=== PATIENT | male | born 1980 | race Caucasian/White ===

== ENCOUNTER 2020-03-08 19:22 | Emergency (ER) | payer MEDICAID, OTHER ==
[~2020-03-08] VITALS: Ht 193 cm; Wt 133.8 kg
[2020-03-08 19:38] VITALS: BP 136/109
[2020-03-08] MEDS ORDERED: HYDROcodone/APAP 5 MG/325 MG (LORTAB) TAB PO ONE (19:45)
[2020-03-08] MEDS ORDERED: LIDOCAINE 1% INJ 20 ML 20 ML VIAL INJ ONE (19:45)
--- NOTE | 2020-03-08 20:09 | ED Integumentary General ---
General Chief Complaint: General Problems/Pain Stated Complaint: WELT ON NECK Nursing Triage Note: Pt to RM 7 with c/o knot on left side of neck that is causing pain down neck. Source: patient Exam Limitations: no limitations History of Present Illness Date Seen by Provider: Mar 08, 2020 Time Seen by Provider: 19:35 Initial Comments 39-year-old male who presents to the emergency room with complaints of painful red knot on the left side of his neck. He reports that he noticed this a few days ago and is concerned that he got bit by a spider. He denies fevers. Possible Cause: insect bite Associated Symptoms: swelling/mass/lumps Allergies and Home Medications Allergies Coded Allergies: No Known Drug Allergies (Unverified , 03/08/20) Patient Home Medication List Home Medication List Reviewed: Yes Review of Systems Review of Systems Constitutional: see HPI; No chills, No fever Skin: see HPI, other (lump on left side of neck) All Other Systems Reviewed Negative Unless Noted: Yes Past Pxzorrs-Tfyzff-Uiueqj Hx Past Med/Social Hx: Reviewed Nursing Past Med/Soc Hx Patient Social History Recent Foreign Travel: No Contact w/Someone Who Travel: No Recent Infectious Disease Expo: No Recent Hopitalizations: No Seasonal Allergies Seasonal Allergies: No Past Medical History Surgeries: Yes Tonsillectomy Respiratory: Yes Pulmonary Embolism Cardiac: No Neurological: No Genitourinary: No Gastrointestinal: No Musculoskeletal: No Endocrine: Yes Diabetes, Non-Insulin dep HEENT: No Cancer: No Psychosocial: No Integumentary: No Blood Disorders: No Family Medical History Reviewed Nursing Family Hx Physical Exam Vital Signs Vital Signs - First Documented 03/08/20 19:38 Temp 37.1 Pulse 85 Resp 19 B/P (MAP) 136/109 (118) Pulse Ox 98 O2 Delivery Room Air Capillary Refill : Less Than 3 Seconds General Appearance: WD/WN, no apparent distress Respiratory: chest non-tender, lungs clear, normal breath sounds, no respiratory distress, no accessory muscle use Gastrointestinal: normal bowel sounds, non tender, soft, no organomegaly, no pulsatile mass Neurologic/Psychiatric: alert, normal mood/affect, oriented x 3 Skin Problem Location: neck Skin Problem Character: abscess (2 cm in diameter indurated reddened raised area on the left side of neck with mild amount of fluctuation. No redness or streaking noted from the central punctum area.) Procedures/Interventions I&D : Blade Size: 11 I & D Procedure: betadine prep Progress The wound was cleaned with Betasept prior to anesthetization. The wound was anesthetized size with lidocaine 1% without epinephrine approximately 1 mL. A small incision was made with an 11 blade scalpel. Moderate amount of purulent drainage was expressed. Forceps were inserted and loculations were broken up. Cavity was irrigated with lidocaine. Patient tolerated procedure well. Sterile dressing was applied. Progress/Results/Core Measures Results/Orders My Orders Orders - ARBEN BOUDREAUX Hydrocodone/Apap 5/325 Tablet (Lortab 5 (03/08/20 19:45) Lidocaine 1% Inj 20 Ml (Xylocaine 1% Inj (03/08/20 19:45) Wound Culture (03/08/20 19:41) Sulfamethoxazole/Trimet Ds Tab (Bactrim (03/08/20 20:15) Medications Given in ED Current Medications Medications Dose Ordered Sig/Mary Route Start Time Stop Time Status Last Admin Dose Admin Acetaminophen/ Hydrocodone Bitart 1 tab ONCE ONCE PO 03/08/20 19:45 03/08/20 19:46 DC 03/08/20 19:46 1 TAB Lidocaine HCl 20 ml ONCE ONCE INJ 03/08/20 19:45 03/08/20 19:46 DC 03/08/20 19:46 20 ML Vital Signs/I&O 03/08/20 19:38 Temp 37.1 Pulse 85 Resp 19 B/P (MAP) 136/109 (118) Pulse Ox 98 O2 Delivery Room Air Blood Pressure Mean: 118 Departure Impression Primary Impression: Neck abscess Disposition: 01 HOME, SELF-CARE Condition: Stable/Unchanged Departure-Patient Inst. Decision time for Depature: 20:14 Referrals: NO,LOCAL PHYSICIAN (PCP/Family) Primary Care Physician Patient Instructions: Abscess Incision and Drainage (DC) Add. Discharge Instructions: Take medications as directed. Change dressing daily. Follow-up with your primary care provider within 1 week for recheck. Call tomorrow to schedule an appointment time. Return back to the emergency room for worsening symptoms, fevers, or any other concerns as needed. All discharge instructions reviewed with patient and/or family. Voiced understanding. Scripts Sulfamethoxazole/Trimethoprim (Bactrim Ds Tablet) 1 Each Tablet 1 EACH PO BID for 10 Days, #20 TAB Prov: ARBEN BOUDREAUX 03/08/20 ARBEN BOUDREAUX Mar 08, 2020 20:09
[2020-03-08] MEDS ORDERED: TRIM/SULFAMETH 160/800 (SEPTRA DS) TAB PO ONE (20:15)
[2020-03-08] MEDS ORDERED: SULF1TAB35 PO (20:16)
--- OUTSIDE RECORDS SUMMARY | 2020-03-08 22:52 | XMS REPORT | Continuity of Care Document ---
[facility] Address [address] [place] [address] Care Team Providers Care Floor Space Allocator Name Role Phone Odessa Hopson PCP Unavailable Ana Green Unavailable Allergies, Adverse Reactions, Alerts No known allergies. Medications Active Medications Medication Dose Units Route Sig Qty Start Date Status In structions Insulin Glargine [Lantus Solostar U-100 Insulin] 13 UNIT S ubcutaneous daily January 06, 2019 Active Apixaban [Eliquis] 5 MG Oral Twice a Day July 07, 2018 Active Hydrocodone-Acetaminophen 1 TAB Oral Q6H er 2017 Active Insulin Syringe-Needle U-100 [Bd Insulin Syringe Ultra-Fine] 0 Route .MEDSUPPLY 100 November 10, 2018 Active Use for Novolog Injections Blood Sugar Diagnostic [True Metrix Glucose Test Strip] 0 Route .MEDSUPPLY 100 November 12, 2018 Active Check bs twice daily and as needed Rosuvastatin 10 MG Oral daily November 24, 2018 Activ e Metformin 1000 MG Oral Twice a Day 120 December 02, 2018 Act [place]on Insulin Regular Human [Novolin R Regular U-100 Insuln] 1 sliding scale dose Subcutaneous Use as Directed December 10, 2018 Active He takes s liding scale: 150-200 3 units; 201-250 6 units, 251-30 0 9 units; 301-350 12 units Discontinued Medications Medication Dose Units Route Sig Qty Start Date Discontinued Yinka e Status Instructions Rosuvastatin 10 MG Oral daily July 04, 2018 October 172018 Discontinued Metformin 1000 MG Oral Twice a Day July 04, 2018 October 28, 2018 Discontinued Insulin Regular Human UNIT Subcutaneous Novem 2017November 07, 2018 Discontinued Hydrocodone-Acetaminophen 1 TAB Oral Q6H 15 b er 2017July 07, 2018 Discontinued Insulin Degludec [Tresiba Flextouch U-100] 10 UNIT Subcuta neous daily 15 July 14, 2018JuneJuly 16, 2018 Discontinued Inject 10 units ever y day for 1 week, then increase by 3-5 units until FBS is 120-150 Insulin Glargine [Lantus Solostar U-100 Insulin] 10 UNIT S ubcutaneous daily 15 July 16, 2018 January 06, 2019 Discontinued Pen Needle, Diabetic [Comfort Ez Pen [place]] 0 Rout e .MEDSUPPLY 100 July 16, 2018 November 07, 2018 Discontinued Use daily with lantu s solostar pen Rosuvastatin 10 MG Oral daily 30 October 28, 2018 November 24, 2 019 Discontinued Metformin 1000 MG Oral Twice a Day 60 October 28, 2018Nov Discontinued Insulin Lispro [Humalog U-100 Insulin] 1 sliding scale d ose Subcutaneous Use as Directed 3 November 07, 2018 November 10, 2018 Discontinued He takes sl iding scale: 150-200 3 units; 201-250 6 units, 251-30 0 9 units; 301-350 12 units Blood Sugar Diagnostic [Onetouch Verio] 0 Route .MEDSUPP LY 100 November 07, 2018 November 12, 2018 Discontinued Use to check blood sugars tw ice daily and as needed Insulin Syringe-Needle U-100 [Bd Insulin Syringe Ultra-Fine] 0 Route .MEDSUPPLY 100 November 07, 2018 November 10, 2018 Discontinued Use for Hum alog Injections Insulin Regular Human [Novolin R Regular U-100 Insuln] 1 sliding scale dose Subcutaneous Use as Directed November 10, 2018 November 10, 2018 Discontinu ed Insulin Regular Human [Novolin R Regular U-100 Insuln] 1 sliding scale dose Subcutaneous Use as Directed November 10, 2018 December 10, 2018 Discontinu ed He takes sliding scale: 150-200 3 units; 201-250 6 units, 251-30 0 9 units; 301-350 12 units Enoxaparin [Lovenox] 130 MG Subcutaneous Every 12 Hours 4 February 01, 2018 July 07, 2018 Discontinued Prednisone 0 Route .COMPLEX 17 June 18, 2018 Nov ember 2017 Discontinued 3 tabs daily x 2 days, 2 tabs daily x 3 days, 1 tab daily x 3 days, 1/2 tab daily x 3 days, then stop Problem List Active Problems Medical Problem Onset Date Status Urticaria Active DVT (deep venous thrombosis) Active Diabetes type 2, uncontrolled Active Procedures Procedure Date Status US echocardiogram ultrasound January 09, 2019 active XR chest 2V January 06, 2019 completed Reason for Referral Reason for Referral Date Referral was Provided Provider Office Contact Location January 07, 2019 [facility] Relevant Diagnostic Tests and/or Laboratory Data Laboratory Results Test Date/Time Result Interp. Ref. Range Result Comment White Blood Count January 06, 2019 3:10pm 12.0 10^3/uL High 4.5-11. 0 Red Blood Count January 06, 2019 3:10pm 5.60 10^6/uL 4.70-6.00 Hemoglobin January 06, 2019 3:10pm 17.6 g/dL High 13.5-17.5 Hematocrit January 06, 2019 3:10pm 50.7 % 41-53 Mean Corpuscular Volume January 06, 2019 3:10pm 90.5 fL 79- 99 Mean Corpuscular Hemoglobin January 06, 2019 3:10pm 31.5 pg 25.0-34.0 Mean Corpuscular Hemoglobin Concent January 06, 2019 3:10pm 34.8 g/dL 31.0-36.0 Red Cell Distribution Width January 06, 2019 3:10pm 13.0 % 11.0-15.0 Platelet Count January 06, 2019 3:10pm 271 10^3 uL 130-400 Mean Platelet Volume January 06, 2019 3:10pm 8.5 fL 7.0-11 .0 Neutrophils % (Manual) January 06, 2019 3:10pm 61.0 % 50-6 5 Band Neutrophils % (Manual) January 06, 2019 3:10pm 1.0 % 0-10 Lymphocytes % (Manual) January 06, 2019 3:10pm 36.0 % 15-4 5 Eosinophils % (Manual) January 06, 2019 3:10pm 2.0 % 0-5 Neutrophils # (Manual) January 06, 2019 3:10pm 7.4 # 1.0- 8.0 Lymphocytes # (Manual) January 06, 2019 3:10pm 4.3 # High 1.0- 3.0 Eosinophils # (Manual) January 06, 2019 3:10pm 0.2 # 0.0- 0.4 Chief Complaint and Reason for Visit Encounter Admit Date Chief Complaint Reason for Visit Departed Clinical January 09, 2019 8:07am Sinus tachycardia|Pr e-operative cardiovascular exa Hospital Discharge Instructions No known hospital discharge instructions. Hospital Discharge Medications Medication Dose Units Route Sig Qty Days Order Date Status In structions Insulin Glargine 13 UNIT Subcutaneous daily January 06, 2019 Active Rosuvastatin 10 MG Oral daily July 04, 2018 Discontinued Metformin 1000 MG Oral Twice a Day July 04 8 Discontinued Insulin Regular Human UNIT Subcutaneous Nov 2017 Discontinued Apixaban 5 MG Oral Twice a Day July 07, 2018 Active Hydrocodone-Acetaminophen 1 TAB Oral Q6H 2017 Discontinued Hydrocodone-Acetaminophen 1 TAB Oral Q6H 2017 Active Insulin Degludec 10 UNIT Subcutaneous daily July 14, 2018 Discontinued Inject 10 units every day for 1 week, then increase by 3-5 units until FBS is 120-150 Insulin Glargine 10 UNIT Subcutaneous daily July 16, 2018 Discontinued Pen Needle, Diabetic 0 Route .MEDSUPPLY 100 Novemb er 2017 Discontinued Use daily with lantus solostar pen Rosuvastatin 10 MG Oral daily October 28, 2018 Dis continued Metformin 1000 MG Oral Twice a Day 60 October 28, 2018 D iscontinued Insulin Lispro 1 sliding scale dose Subcutaneous Use as Directed 3 November 07, 2018 Discontinued He takes sliding scale: 150-200 3 units; 201-250 6 units, 251-30 0 9 units; 301-350 12 units Blood Sugar Diagnostic 0 Route .MEDSUPPLY 100 [place] h 2018 Discontinued Use to check blood sugars twice daily and as needed Insulin Syringe-Needle U-100 0 Route .MEDSUPPLY 100 November 07, 2018 Discontinued Use for Humalog Injections Insulin Regular Human 1 sliding scale dose Subcutaneous Use as Dir ected November 10, 2018 Discontinued Insulin Regular Human 1 sliding scale dose Subcutaneous Use as Dir ected November 10, 2018 Discontinued He takes sliding scale: 150-200 3 units; 201-250 6 units, 251-30 0 9 units; 301-350 12 units Insulin Syringe-Needle U-100 0 Route .MEDSUPPLY 100 November 10, 2018 Active Use for Novolog Injections Blood Sugar Diagnostic 0 Route .MEDSUPPLY 100 [place] h 2018 Active Check bs twice daily and as needed Rosuvastatin 10 MG Oral daily November 24, 2018 Acti ve Metformin 1000 MG Oral Twice a Day 120 December 02, 2018 A ctive Insulin Regular Human 1 sliding scale dose Subcutaneous Use as Dir ected December 10, 2018 Active He takes sliding scale: 150-200 3 units; 201-250 6 units, 251-30 0 9 units; 301-350 12 units Enoxaparin 130 MG Subcutaneous Every 12 Hours 4 January 172017 Discontinued Prednisone 0 Route .COMPLEX 17 June 18, 2018 D iscontinued 3 tabs daily x 2 days, 2 tabs daily x 3 days, 1 tab daily x 3 days, 1/2 tab daily x 3 days, then stop Encounters Encounter Facility Location Admit/Visit Date Discharge/Departure Date Attending Provider Departed [facility] Radiology January 09, 2019 8:07am January 09, 2019 8:08am Ana Green Departed Physician/Provider Office Visit [facility] Partner s [facility] Family Medicine January 07, 2019 10:17am January 07, 2019 11:59pm Ana Green Departed [facility] for Patients in [facility] January 06, 2019 3:09pm January 06, 2019 3:10pm Ana Green Departed Physician/Provider Office Visit [facility] Medical Partner [facility] Medicine January 06, 2019 1:56pm January 06, 2019 3:20pm Ana Green Functional Status No known functional status. Immunizations No known immunizations. Payers Payer Name Policy Type Covered Green Party Covered Green Party Id Relationship Sub scriber Subscriber Id [employer] Medicaid Christopher Linker [id number] Self / Same As Patient Christopher Linker [id number] [facility] Medicaid Christopher Linker [id number] Self / Same As Patient Christopher Linker [id number] Self Pay Plan of Care No Known Plan of Care Information Social History Query Response Date Recorded Comment current occupational status unemployed January 06, 2019 5:09pm service No January 06, 2019 5:09pm second hand exposure Yes January 06, 2019 5:09pm substance use type does not use January 06, 2019 5:09pm Query Response Start Date Stop Date Smoking Status Current every day smoker Vital Signs Vital Reading Result Reference Range Collection Date/ Time Height 6 ft 4 in January 06, 2019 2:0 1pm Weight 300 lb January 06, 2019 2:0 1pm Temperature 96.2 F 97.5 F-99.5 F January 06, 2019 2:0 1pm Pulse 80 BPM 60-90 January 06, 2019 2:0 1pm Respiration 20 RPM 12-20 January 06, 2019 2:0 1pm Pulse Oximetry 98 % 90-100 January 06, 2019 2:0 1pm Blood Pressure Systolic 118 100-160 January 06, 2019 2:01pm Blood Pressure Diastolic 90 50-80 January 06, 2019 2:01pm Body Mass Index 36.5 January 06, 2019 2:0 1pm"
--- OUTSIDE RECORDS SUMMARY | 2020-03-08 22:52 | XMS REPORT | Continuity of Care Document ---
[facility] Address [address] [place] [address] Care Team Providers Care Financial Report Service Sales Agent Name Role Phone Odessa Hopson PCP Unavailable PeterAna pappas Attphys Unavailable PeterAna pappas Rndphys Unavailable Allergies, Adverse Reactions, Alerts No known [...] as needed Rosuvastatin 10 MG Oral daily 30 November 24, 2018 Activ e Metformin 1000 [...] Discontinued Hydrocodone-Acetaminophen 1 TAB Oral Q6H 15 er 2017July 07, 2018 Discontinued Insulin Degludec [Tresiba Flextouch U-100] 10 UNIT Subcuta neous daily July 14, 2018 July 16, 2018 Discontinued Inject 10 units ever y day for 1 week, then increase by 3-5 units until FBS is 120-150 Insulin Glargine [Lantus Solostar U-100 Insulin] 10 UNIT S ubcutaneous daily 15 July 16, 2018 January 06, 2019 Discontinued Pen Needle, Diabetic [Comfort Ez Pen [place]] 0 Rout e .MEDSUPPLY 100 July 16, 2018 November 07, 2018 Discontinued Use daily with lantu s solostar pen Rosuvastatin 10 MG Oral daily 30 October 28, 2018 November 24, 2 019 Discontinued Metformin 1000 MG Oral Twice a Day 60 October 28, 2018Nov Discontinued Insulin Lispro [Humalog U-100 Insulin] 1 sliding scale d ose Subcutaneous Use as Directed November 07, 2018 November 10, 2018 Discontinued [...] Route .COMPLEX 17 June 18, 2018 Nov emb2017 Discontinued 3 tabs daily x 2 days, 2 tabs daily x 3 days, 1 tab daily x 3 days, 1/2 tab daily x 3 days, then stop Problem List Active Problems Medical Problem Onset Date Status Urticaria Active DVT (deep venous thrombosis) Active Diabetes type 2, uncontrolled Active Procedures Procedure Date Status XR chest 2V January 06, 2019 completed [...] Date Chief Complaint Reason for Visit Departed Physician/Provider Office Visit January 07, 2019 10:17am re peat EKG, [facility] Discharge Instructions No known hospital discharge [...] Needle, Diabetic 0 Route .MEDSUPPLY 100 Novemb 2017 Discontinued Use daily with lantus solostar pen Rosuvastatin 10 MG Oral daily October 28, 2018 Dis continued Metformin 1000 MG Oral Twice a Day 60 October 28, 2018 D iscontinued Insulin Lispro 1 sliding scale dose Subcutaneous Use as Directed November 07, 2018 Discontinued He takes sliding [...] January 172017 Discontinued Prednisone 0 Route .COMPLEX June 18, 2018 D iscontinued 3 tabs daily x 2 days, 2 tabs daily x 3 days, 1 tab daily x 3 days, 1/2 tab daily x 3 days, then stop Encounters Encounter Facility Location Admit/Visit Date Discharge/Departure Date Attending Provider Departed Physician/Provider Office Visit [facility] s [facility] Family Medicine January 07, 2019 10:17am January 07, 2019 11:59pm Ana Green Departed Clinical [facility] for Patients in [facility] January 06, 2019 3:09pm January 06, 2019 3:10pm Ana Green Departed Physician/Provider Office Visit [facility] Medical Partner s [facility] Medicine January 06, 2019 1:56pm January 06, 2019 3:20pm Ana Green Functional Status No known functional status. Immunizations No known immunizations. Payers Payer Name Policy Type Covered Green Party Covered Green Party Id Relationship Sub scriber Subscriber Id [employer] Medicaid Christopher Linker [id number] Self / Same As Patient Christopher Linker [id number] [facility] Medicaid Christopher Linker [id number] Self / Same As Patient Christopher Linker [id number] Self Pay Plan of Care No Known [...] 06, 2019 2:0 1pm Respiration 20 RPM 12-January 06, 2019 2:0 1pm Pulse Oximetry 98 % 90-100 January 06, 2019 2:0 1pm Blood Pressure Systolic 118 100-160 January 06, 2019 2:01pm Blood Pressure Diastolic 90 50-80 January 06, 2019 2:01pm Body Mass Index 36.5 January 06, 2019 2:0 1pm
--- OUTSIDE RECORDS SUMMARY | 2020-03-08 22:52 | XMS REPORT | Clinical Summary ---
Author Author Vahid Holliday Organization [facility] Address Unknown Phone Unavailable Allergies, Adverse Reactions, Alerts Allergy Name Reaction Description Start Date Severity Status Pr ovider No Known Allergies Shiloh Lewis LPN Conditions or Problems Problem Name Problem Code Onset Date Status Entry Date Provider Comment Standard Description Annotate Type 2 diabetes mellitus with hyperglycemia 250.00 Act ramon Maliheh Ziglari MELTER CASTER Diabetes mellitus without me ntion of complication, type II or unspecified type, not stated as uncontrolled Medication List Medication Instructions Start Date Stop Date Generic Name NDC Status Provider Patient Instruction ONETOUCH VERIO INVITR STRP Check blood sugars 3x/day GLUCOSE BLOOD 20186622276 Active Maliheh Ziglari MELTER CASTER Active ONETOUCH DELICA LANCETS 33G MISC 3 a day LANCET S 84729594385 Active Maliheh Ziglari MELTER CASTER Active METFORMIN HCL 500 MG [id number] one a day for 5 days th en 2 a day for 5 days, add one every 5 days to 4 daily METFORMIN HCL 19672243338 Acti ve Maliheh Ziglari MELTER CASTER Active NOVOLOG 100 UNIT/ML SC SOLN 150-3u 199-6u sliding scale with m eals INSULIN ASPART 22859504006 Active Maliheh Ziglari MELTER CASTER Active COUMADIN 2.5 MG ORAL TABS takes with 10mg tablets every other day 2 WARFARIN SODIUM 23239558689 Active Maliheh Ziglari MELTER CASTER Acti ve COUMADIN 10 MG ORAL TABS takes 15mg - alterating with 12.5 EOD 2016 WARFARIN SODIUM 40418430209 Active Maliheh Ziglari MELTER CASTER Acti ve Vital Signs Date Name Value Unit Range Description blood pressure, diastolic - 8462-4 80 mm[Hg] BP real blood pressure, systolic - 8480-6 128 mm[Hg] BP sys height E&M - 8302-2 76 [in_us] Bdy h eight pulse rate E&M - 8867-4 84 /min H eart rate weight E&M - 3141-9 350 [lb_av] Weigh t Measured Diagnostic Results Date Name Value Unit Range Description Lab Report: Basic Metabolic Panel, HGBA1 C - Chemistry sodium, serum 138 mmol/L 808-765 2806/06/01 potassium, serum 4.4 mmol/L 3.5-5.2 chloride, serum 103 mmol/L 98-107 carbon dioxide, venous blood 26.8 mmol/L 21.0-32 .0 blood glucose 241 mg/dL 65-110 calcium, serum 8.5 mg/dL 8.5-10.1 urea nitrogen, blood 11 mg/dL 7-18 creatinine, serum Err code 14 mg/dl mg/dL 0.55-1.30 hemoglobin A1C, blood, as % of total hemoglobin 7.2 % 4.3-6.0 Office Visit: Diabetes Visit - Basic LDL target level 100 mg/dL Office Visit: Diabetes Visit - Chemistry home glucose monitor utilized Yes cholesterol, target level 200 mg/dL triglyceride, target level 200 mg/dL HDL cholesterol, serum, target level 35 mg/dL Encounters Code Encounter Date Provider Facility CPT-11040 Level 5 Est. Patient 12:50:37 CDT Derek jackson [facility]
--- OUTSIDE RECORDS SUMMARY | 2020-03-08 22:52 | XMS REPORT | Clinical Summary ---
Author Author Vahid Holliday Organization [facility] Address Unknown Phone Unavailable Allergies, Adverse Reactions, Alerts Allergy Name Reaction Description Start Date Severity Status Pr ovider No Known Allergies Shlioh Lewis LPN Conditions or Problems Problem Name Problem Code Onset Date Status Entry Date Provider Comment Standard Description Annotate Type 2 diabetes mellitus with hyperglycemia 250.00 Act ramon Maliheh Ziglari [employer]OP[employer] PLAYER Diabetes mellitus without me ntion of complication, type II or unspecified type, not stated as uncontrolled Medication List Medication Instructions Start Date Stop Date Generic Name NDC Status Provider Patient Instruction ONETOUCH VERIO INVITR STRP Check blood sugars 3x/day GLUCOSE BLOOD 85412304544 Active Maliheh Ziglari SAXOPHONE PLAYER Active ONETOUCH DELICA LANCETS 33G MISC 3 a day LANCET S 98248776759 Active Maliheh Ziglari SAXOPHONE PLAYER Active METFORMIN HCL 500 MG [id number] one a day for 5 days th en 2 a day for 5 days, add one every 5 days to 4 daily METFORMIN HCL 11670229827 Acti ve Maliheh Ziglari SAXOPHONE PLAYER Active NOVOLOG 100 UNIT/ML SC SOLN 150-3u 199-6u sliding scale with m eals INSULIN ASPART 67508292714 Active Maliheh Ziglari SAXOPHONE PLAYER Active COUMADIN 2.5 MG ORAL TABS takes with 10mg tablets every other day 2 WARFARIN SODIUM 53388485342 Active Maliheh Ziglari SAXOPHONE PLAYER Acti ve COUMADIN 10 MG ORAL TABS takes 15mg - alterating with 12.5 EOD 2016 WARFARIN SODIUM 99576011144 Active Maliheh Ziglari SAXOPHONE PLAYER Acti ve Vital Signs Date Name Value [...] C - Chemistry sodium, serum 138 mmol/L 105-245 3191/06/01 potassium, serum 4.4 mmol/L 3.5-5.2 chloride, serum [...] mg/dL Encounters Code Encounter Date Provider Facility CPT-55773 Level 5 Est. Patient 12:50:37 CDT Derek jackson [facility]
--- OUTSIDE RECORDS SUMMARY | 2020-03-08 22:52 | XMS REPORT | Clinical Summary ---
Author Author Admin, Vahid Gomes Organization [facility] Address Unknown Phone Unavailable Allergies, Adverse Reactions, Alerts Allergy Name Reaction Description Start Date Severity Status Pr ovider No Known Allergies Shiloh Lewis LPN Conditions or Problems Problem Name Problem Code Onset Date Status Entry Date Provider Comment Standard Description Annotate Type 2 diabetes mellitus with hyperglycemia 250.00 Act ramon Maliheh Ziglari MANAGER OF RECRUITING Diabetes mellitus without me ntion of complication, type II or unspecified type, not stated as uncontrolled Medication List Medication Instructions Start Date Stop Date Generic Name NDC Status Provider Patient Instruction ONETOUCH VERIO INVITR STRP Check blood sugars 3x/day GLUCOSE BLOOD 91598852300 Active Maliheh Ziglari MANAGER OF RECRUITING Active ONETOUCH DELICA LANCETS 33G MISC 3 a day LANCET S 82458721008 Active Maliheh Ziglari MANAGER OF RECRUITING Active METFORMIN HCL 500 MG [id number] one a day for 5 days th en 2 a day for 5 days, add one every 5 days to 4 daily METFORMIN HCL 10798946527 Acti ve Maliheh Ziglari MANAGER OF RECRUITING Active NOVOLOG 100 UNIT/ML SC SOLN 150-3u 199-6u sliding scale with m eals INSULIN ASPART 88528976940 Active Maliheh Ziglari MANAGER OF RECRUITING Active COUMADIN 2.5 MG ORAL TABS takes with 10mg tablets every other day 2 WARFARIN SODIUM 66895626324 Active Maliheh Ziglari MANAGER OF RECRUITING Acti ve COUMADIN 10 MG ORAL TABS takes 15mg - alterating with 12.5 EOD 2016 WARFARIN SODIUM 30710255709 Active Maliheh Ziglari MANAGER OF RECRUITING Acti ve Vital Signs Date Name Value [...] C - Chemistry sodium, serum 138 mmol/L 333-420 7588/06/01 potassium, serum 4.4 mmol/L 3.5-5.2 chloride, serum [...] mg/dL Encounters Code Encounter Date Provider Facility CPT-67575 Level 5 Est. Patient 12:50:37 CDT Derek jackson [facility]
--- OUTSIDE RECORDS SUMMARY | 2020-03-08 22:52 | XMS REPORT ---
Author Author Vahid WILLOUGHBY Organization [facility] Address [address] [place] [address] Care Team Providers Care Power Generation Plant Operator Name Role Phone NIKOLAY WILLOUGHBY Unavailable PROBLEMS Unknown Problems ALLERGIES No Known Allergies SOCIAL HISTORY Never Assessed PLAN OF CARE Activity Details Follow Up SRP/CARLA need INR and medical clearance Reason: VITAL SIGNS Blood pressure systolic 115 mmHg 2016-10-16 Blood pressure diastolic 77 mmHg 2016-10-16 MEDICATIONS Medication Instructions Dosage Frequency Start Date End Date Duration S tatus Insulin Aspart Active Warfarin Sodium Active RESULTS No Results PROCEDURES Procedure Date Ordered Result Body Site LTD ORAL EVALUATION - PROBLEM FOCUS Oct 16, 2016 INTRAORL-PERIAPICAL 1 FILM [id number] Oct 16, 2016 INTRAORL-PERIAPICAL EA ADD FILM Oct 16, 2016 INTRAORL-PERIAPICAL EA ADD FILM Oct 16, 2016 PANORAMIC FILM SEE ALSO CODE [id number] Oct 16, 2016 BITEWINGS - FOUR FILMS Oct 16, 2016 IMMUNIZATIONS No Known Immunizations MEDICAL (GENERAL) HISTORY Type Description Date Medical History diabetes type II Medical History heoatutus C inactive Medical History blood thinners Medical History pulmonary embolism Surgical History tonsillectomy Hospitalization History see surgical Hx Hospitalization History pulmonary embolism 2009 Hospitalization History diabetes 04/2016
--- OUTSIDE RECORDS SUMMARY | 2020-03-08 22:52 | XMS REPORT | Clinical Summary ---
Author Author Vahid Holliday Organization [facility] Address Unknown Phone Unavailable Allergies, Adverse Reactions, Alerts Allergy Name Reaction Description Start Date Severity Status Pr ovider No Known Allergies Shiloh Lewis LPN Conditions or Problems Problem Name Problem Code Onset Date Status Entry Date Provider Comment Standard Description Annotate Type 2 diabetes mellitus with hyperglycemia 250.00 Act ramon Maliheh Ziglari FLOUR MIXER Diabetes mellitus without me ntion of complication, type II or unspecified type, not stated as uncontrolled Medication List Medication Instructions Start Date Stop Date Generic Name NDC Status Provider Patient Instruction ONETOUCH VERIO INVITR STRP Check blood sugars 3x/day GLUCOSE BLOOD [id number] Active Maliheh Ziglari FLOUR MIXER Active ONETOUCH DELICA LANCETS 33G MISC 3 a day LANCET S 00315855024 Active Maliheh Ziglari FLOUR MIXER Active METFORMIN HCL 500 MG [id number] one a day for 5 days th en 2 a day for 5 days, add one every 5 days to 4 daily METFORMIN HCL 50687431100 Acti ve Maliheh Ziglari FLOUR MIXER Active NOVOLOG 100 UNIT/ML SC SOLN 150-3u 199-6u sliding scale with m eals INSULIN ASPART 83295512648 Active Maliheh Ziglari FLOUR MIXER Active COUMADIN 2.5 MG ORAL TABS takes with 10mg tablets every other day 2 WARFARIN SODIUM 13670960254 Active Maliheh Ziglari FLOUR MIXER Acti ve COUMADIN 10 MG ORAL TABS takes 15mg - alterating with 12.5 EOD 2016 WARFARIN SODIUM 67156474127 Active Maliheh Ziglari FLOUR MIXER Acti ve Vital Signs Date Name Value [...] Results Date Name Value Unit Range Description Office Visit: Diabetes Visit - Basic LDL target level 100 mg/dL Office Visit: Diabetes Visit - Chemistry home glucose monitor utilized Yes cholesterol, target level 200 mg/dL triglyceride, target level 200 mg/dL HDL cholesterol, serum, target level 35 mg/dL Encounters Code Encounter Date Provider Facility CPT-22061 Level 5 Est. Patient 12:50:37 CDT Derek jackson [facility]
--- OUTSIDE RECORDS SUMMARY | 2020-03-08 22:52 | XMS REPORT | Continuity of Care Document ---
[facility] Address [address] [place] [address] Care Team Providers Care Revenue Inspector Name Role Phone Odessa Hopson PCP Unavailable [...] Discontinued Pen Needle, Diabetic [Comfort Ez Pen [place]] 0 Rout e .MEDSUPPLY 100 July 16, [...] XR chest 2V January 06, 2019 completed Relevant Diagnostic Tests and/or Laboratory Data Laboratory [...] 06, 2019 3:10pm 0.2 # 0.0- 0.4 Hospital Discharge Instructions No known hospital discharge instructions. Hospital Discharge Medications Medication Dose Units Route Sig Qty Days Order Date Status In structions Insulin Glargine 13 UNIT Subcutaneous daily January 06, 2019 Active Rosuvastatin 10 MG Oral daily July 04, 2018 Discontinued Metformin 1000 MG Oral Twice a Day July 04 8 Discontinued Insulin Regular Human UNIT Subcutaneous Jun Discontinued Apixaban 5 MG Oral Twice a Day July 07, 2018 Active Hydrocodone-Acetaminophen 1 TAB Oral Q6H 15 2017 Discontinued Hydrocodone-Acetaminophen 1 TAB Oral Q6H [...] Blood Sugar Diagnostic 0 Route .MEDSUPPLY 100 [place] h 2018 Active Check bs twice daily [...] Location Admit/Visit Date Discharge/Departure Date Attending Provider Registered Physician/Provider Office Visit [facility] Medical Partn ers [facility] Family Medicine January 07, 2019 10:17am Ana Green Departed Clinical [facility] for Patients in [facility] January 06, 2019 3:09pm January 06, 2019 3:10pm Ana Green Departed Physician/Provider Office Visit [facility] Medical Partner s [facility] Family Medicine January 06, 2019 1:56pm January 06, 2019 3:20pm Ana Green Functional Status No known functional status. Immunizations No known immunizations. Payers Payer Name Policy Type Covered Constitution Party Covered Constitution Party Id Relationship Sub scriber Subscriber Id [facility] Medicaid Christopher Linker [id number] Self / Same As Patient Christopher Linker [id number] [facility] Medicaid Christopher Linker [id number] Self / Same As Patient Christopher Linker [id number] Self Pay Plan of Care No Known [...]
--- OUTSIDE RECORDS SUMMARY | 2020-03-08 22:52 | XMS REPORT | Continuity of Care Document ---
[facility] Address [address] [place] [address] Care Team Providers Care Associate Professor Of Management Name Role Phone Odessa Hopson PCP Unavailable [...] U-100 Insulin] 10 UNIT S ubcutaneous daily July 16, 2018 January 06, 2019 Discontinued Pen Needle, Diabetic [Comfort Ez Pen [place]] 0 Rout e .MEDSUPPLY 100 July 16, [...] Route .COMPLEX 17 June 18, 2018 Nov 2017 Discontinued 3 tabs daily x 2 days, 2 tabs daily x 3 days, 1 tab daily x 3 days, 1/2 tab daily x 3 days, then stop Problem List Active Problems Medical Problem Onset Date Status Urticaria Active DVT (deep venous thrombosis) Active Diabetes type 2, uncontrolled Active Procedures No known history of procedures. Reason for Referral Referral information is unavailable. Relevant Diagnostic Tests and/or Laboratory Data No known relevant diagnostic tests, laboratory data, and/or discharge summary. Chief Complaint and Reason for Visit Encounter Admit Date Chief Complaint Reason for Visit Departed Physician/Provider Office Visit January 06, 2019 1:56pm surgery on 01/20 preop clearance and labs Hospital Discharge Instructions No known hospital discharge [...] MG Oral daily 30 October 28, 2018 Dis continued Metformin 1000 MG Oral Twice a Day 60 October 28, 2018 D iscontinued Insulin Lispro 1 sliding scale dose Subcutaneous Use as Directed 3 November 07, 2018 Discontinued He takes sliding scale: 150-200 3 units; 201-250 6 units, 251-30 0 9 units; 301-350 12 units Blood Sugar Diagnostic 0 Route .MEDSUPPLY 100 [place] 2018 Discontinued Use to check blood sugars [...] Enoxaparin 130 MG Subcutaneous Every 12 Hours January 172017 Discontinued Prednisone 0 Route .COMPLEX June 18, 2018 D iscontinued 3 tabs daily x 2 days, 2 tabs daily x 3 days, 1 tab daily x 3 days, 1/2 tab daily x 3 days, then stop Encounters Encounter Facility Location Admit/Visit Date Discharge/Departure Date Attending Provider Registered Clinical [facility] for Patients in [facility] January 06, 2019 3:09pm Ana Green Departed Physician/Provider Office Visit [facility] Medical Partner s [facility] Family Medicine January 06, 2019 1:56pm January 06, 2019 3:20pm Ana Green Functional Status No known functional status. Immunizations No known immunizations. Payers Payer Name Policy Type Covered Alliance Party Covered Alliance Party Id Relationship Sub scriber Subscriber Id [employer] Medicaid Christoph Linker [id number] Self / Same As Patient Christopher Linker [id number] [facility] Medicaid Christopher Linker [id number] Self / Same As Patient Christopher Linker [id number] Self Pay Plan of Care No Known Plan of Care Information Social History Query Response Date Recorded Comment current occupational status unemployed January 06, 2019 2:46pm service No January 06, 2019 2:46pm second hand exposure Yes January 06, 2019 2:46pm substance use type does not use January 06, 2019 2:46pm Query Response Start Date Stop Date Smoking [...]
--- OUTSIDE RECORDS SUMMARY | 2020-03-08 22:52 | XMS REPORT | Clinical Summary ---
Author Author Vahid Holliday Organization [facility] Address Unknown Phone Unavailable Allergies, Adverse Reactions, Alerts Allergy Name Reaction Description Start Date Severity Status Pr ovider No Known Allergies Shiloh Lewis LPN Conditions or Problems Problem Name Problem Code Onset Date Status Entry Date Provider Comment Standard Description Annotate Type 2 diabetes mellitus with hyperglycemia 250.00 Act ramon Maliheh Ziglari WAFER ABRADING MACHINE TENDER Diabetes mellitus without me ntion of complication, type II or unspecified type, not stated as uncontrolled Medication List Medication Instructions Start Date Stop Date Generic Name NDC Status Provider Patient Instruction ONETOUCH VERIO INVITR STRP Check blood sugars 3x/day GLUCOSE BLOOD 24467215482 Active Maliheh Ziglari WAFER ABRADING MACHINE TENDER Active ONETOUCH DELICA LANCETS 33G MISC 3 a day LANCET S 29013779269 Active Maliheh Ziglari WAFER ABRADING MACHINE TENDER Active METFORMIN HCL 500 MG [id number] one a day for 5 days th en 2 a day for 5 days, add one every 5 days to 4 daily METFORMIN HCL 40415177613 Acti ve Maliheh Ziglari WAFER ABRADING MACHINE TENDER Active NOVOLOG 100 UNIT/ML SC SOLN 150-3u 199-6u sliding scale with m eals INSULIN ASPART 33796202831 Active Maliheh Ziglari WAFER ABRADING MACHINE TENDER Active COUMADIN 2.5 MG ORAL TABS takes with 10mg tablets every other day 2 WARFARIN SODIUM 77263438939 Active Maliheh Ziglari WAFER ABRADING MACHINE TENDER Acti ve COUMADIN 10 MG ORAL TABS takes 15mg - alterating with 12.5 EOD 2016 WARFARIN SODIUM 76530079621 Active Maliheh Ziglari WAFER ABRADING MACHINE TENDER Acti ve Vital Signs Date Name Value [...] C - Chemistry sodium, serum 138 mmol/L 700-450 3740/06/01 potassium, serum 4.4 mmol/L 3.5-5.2 chloride, serum [...] mg/dL Encounters Code Encounter Date Provider Facility CPT-89068 Level 5 Est. Patient 12:50:37 CDT Derek jackson [facility]
--- OUTSIDE RECORDS SUMMARY | 2020-03-08 22:52 | XMS REPORT | Continuity of Care Document ---
Author Author [facility] Organization [facility] Address [address] [place] [address] Care Team Providers Care Tow Boat Captain Name Role Phone Odessa Hopson PCP Unavailable [...] Discontinued Pen Needle, Diabetic [Comfort Ez Pen [place]] 0 Rout e .MEDSUPPLY 100 July 16, [...] Admit/Visit Date Discharge/Departure Date Attending Provider Departed Clinical [facility] Lab for Patients in Cli [facility] January 06, 2019 3:09pm January 06, 2019 3:10pm Ana Green Departed Physician/Provider Office Visit [facility] Family Medicine January 06, 2019 1:56pm January 06, 2019 3:20pm Ana Green Functional Status No known functional status. Immunizations No known immunizations. Payers Payer Name Policy Type Covered Alliance Party Covered Alliance Party Id Relationship Sub scriber Subscriber Id [employer] Medicaid Christopher Linker [id number] Self / Same As Patient Christopher Linker [id number] [facility] Medicaid Christopher Linker [id number] Self / Same As Patient Christopher Linker [id number] Self Pay Plan of Care No Known [...]
--- OUTSIDE RECORDS SUMMARY | 2020-03-08 22:52 | XMS REPORT | Clinical Summary ---
Author Author Admin, Vahid Gomes Organization [facility] Address Unknown Phone Unavailable Allergies, Adverse Reactions, Alerts Allergy Name Reaction Description Start Date Severity Status Pr ovider No Known Allergies Shiloh Lewis LPN Conditions or Problems Problem Name Problem Code Onset Date Status Entry Date Provider Comment Standard Description Annotate Type 2 diabetes mellitus with hyperglycemia 250.00 Act ramon Maliheh Ziglari SOCIAL SERVICE WORKER Diabetes mellitus without me ntion of complication, type II or unspecified type, not stated as uncontrolled Medication List Medication Instructions Start Date Stop Date Generic Name NDC Status Provider Patient Instruction ONETOUCH VERIO INVITR STRP Check blood sugars 3x/day GLUCOSE BLOOD 07639371717 Active Maliheh Ziglari SOCIAL SERVICE WORKER Active ONETOUCH DELICA LANCETS 33G MISC 3 a day LANCET S 38664786654 Active Maliheh Ziglari SOCIAL SERVICE WORKER Active METFORMIN HCL 500 MG [id number] one a day for 5 days th en 2 a day for 5 days, add one every 5 days to 4 daily METFORMIN HCL 37443883656 Acti ve Maliheh Ziglari SOCIAL SERVICE WORKER Active NOVOLOG 100 UNIT/ML SC SOLN 150-3u 199-6u sliding scale with m eals INSULIN ASPART 23267547987 Active Maliheh Ziglari SOCIAL SERVICE WORKER Active COUMADIN 2.5 MG ORAL TABS takes with 10mg tablets every other day 2 WARFARIN SODIUM 81622580121 Active Maliheh Ziglari SOCIAL SERVICE WORKER Acti ve COUMADIN 10 MG ORAL TABS takes 15mg - alterating with 12.5 EOD 2016 WARFARIN SODIUM 32050150616 Active Maliheh Ziglari SOCIAL SERVICE WORKER Acti ve Vital Signs Date Name Value [...] mg/dL Encounters Code Encounter Date Provider Facility CPT-93296 Level 5 Est. Patient 12:50:37 CDT Derek ENGLISH [facility]
--- OUTSIDE RECORDS SUMMARY | 2020-03-08 22:52 | XMS REPORT | Clinical Summary ---
Author Author Vahid Holliday Organization [facility] Address Unknown Phone Unavailable Allergies, Adverse Reactions, Alerts Allergy Name Reaction Description Start Date Severity Status Pr ovider No Known Allergies Shiloh Lewis LPN Conditions or Problems Problem Name Problem Code Onset Date Status Entry Date Provider Comment Standard Description Annotate Type 2 diabetes mellitus with hyperglycemia 250.00 Act ramon Maliheh Ziglari GROUP UNDERWRITER Diabetes mellitus without me ntion of complication, type II or unspecified type, not stated as uncontrolled Medication List Medication Instructions Start Date Stop Date Generic Name NDC Status Provider Patient Instruction ONETOUCH VERIO INVITR STRP Check blood sugars 3x/day GLUCOSE BLOOD 23392372614 Active Maliheh Ziglari GROUP UNDERWRITER Active ONETOUCH DELICA LANCETS 33G MISC 3 a day LANCET S 35126671215 Active Maliheh Ziglari GROUP UNDERWRITER Active METFORMIN HCL 500 MG [id number] one a day for 5 days th en 2 a day for 5 days, add one every 5 days to 4 daily METFORMIN HCL 10159548647 Acti ve Maliheh Ziglari GROUP UNDERWRITER Active NOVOLOG 100 UNIT/ML SC SOLN 150-3u 199-6u sliding scale with m eals INSULIN ASPART 69726500287 Active Maliheh Ziglari GROUP UNDERWRITER Active COUMADIN 2.5 MG ORAL TABS takes with 10mg tablets every other day 2 WARFARIN SODIUM 74734264543 Active Maliheh Ziglari GROUP UNDERWRITER Acti ve COUMADIN 10 MG ORAL TABS takes 15mg - alterating with 12.5 EOD 2016 WARFARIN SODIUM 88800209534 Active Maliheh Ziglari GROUP UNDERWRITER Acti ve Vital Signs Date Name Value [...] mg/dL Encounters Code Encounter Date Provider Facility CPT-63055 Level 5 Est. Patient 12:50:37 CDT Derek jackson [facility]
--- OUTSIDE RECORDS SUMMARY | 2020-03-08 22:52 | XMS REPORT | Clinical Summary ---
Author Author Admin, Vahid Gomes Organization [facility] Address Unknown Phone Unavailable Allergies, Adverse Reactions, Alerts Allergy Name Reaction Description Start Date Severity Status Pr ovider No Known Allergies Shiloh Lewis LPN Conditions or Problems Problem Name Problem Code Onset Date Status Entry Date Provider Comment Standard Description Annotate Type 2 diabetes mellitus with hyperglycemia 250.00 Act ramon Maliheh Ziglari MICROARRAY SPECIALIST Diabetes mellitus without me ntion of complication, type II or unspecified type, not stated as uncontrolled Medication List Medication Instructions Start Date Stop Date Generic Name NDC Status Provider Patient Instruction ONETOUCH VERIO INVITR STRP Check blood sugars 3x/day GLUCOSE BLOOD 91209359685 Active Maliheh Ziglari MICROARRAY SPECIALIST Active ONETOUCH DELICA LANCETS 33G MISC 3 a day LANCET S 73949713968 Active Maliheh Ziglari MICROARRAY SPECIALIST Active METFORMIN HCL 500 MG [id number] one a day for 5 days th en 2 a day for 5 days, add one every 5 days to 4 daily METFORMIN HCL 93616573608 Acti ve Maliheh Ziglari MICROARRAY SPECIALIST Active NOVOLOG 100 UNIT/ML SC SOLN 150-3u 199-6u sliding scale with m eals INSULIN ASPART 18797244199 Active Maliheh Ziglari MICROARRAY SPECIALIST Active COUMADIN 2.5 MG ORAL TABS takes with 10mg tablets every other day 2 WARFARIN SODIUM 23261145508 Active Maliheh Ziglari MICROARRAY SPECIALIST Acti ve COUMADIN 10 MG ORAL TABS takes 15mg - alterating with 12.5 EOD 2016 WARFARIN SODIUM 11196870366 Active Maliheh Ziglari MICROARRAY SPECIALIST Acti ve Vital Signs Date Name Value [...] C - Chemistry sodium, serum 138 mmol/L 950-407 7906/06/01 potassium, serum 4.4 mmol/L 3.5-5.2 chloride, serum [...] mg/dL Encounters Code Encounter Date Provider Facility CPT-41086 Level 5 Est. Patient 12:50:37 CDT Derek jackson [facility]
--- OUTSIDE RECORDS SUMMARY | 2020-03-08 22:53 | XMS REPORT | Continuity of Care Document ---
[facility] Address [address] [place] [address] Care Team Providers Care Optical Advisor Name Role Phone Odessa Hopson PCP Unavailable Odessa Hopson Attphys Unavailable Allergies, Adverse Reactions, Alerts No known allergies. Medications Active Medications Medication Dose Units Route Sig Qty Start Date Status In structions Rosuvastatin 10 MG Oral daily July 04, 2018 A ctive Metformin 1000 MG Oral Twice a Day July 04, 2018 Active Insulin Regular Human UNIT Subcutaneous 2017 Active Apixaban [Eliquis] 5 MG Oral Twice a Day July 07, 2018 Active Hydrocodone-Acetaminophen 1 TAB Oral Q6H er 2017 Active Insulin Glargine [Lantus Solostar U-100 Insulin] 10 UNIT S ubcutaneous daily July 16, 2018 Active Pen Needle, Diabetic [Comfort Ez Pen [place]] 0 Rout e .MEDSUPPLY 100 July 16, 2018 Active Use daily with lantus solost ar pen Discontinued Medications Medication Dose Units Route Sig Qty Start Date Discontinued Yinka e Status Instructions Hydrocodone-Acetaminophen 1 TAB Oral Q6H er 2017July 07, 2018 Discontinued Insulin Degludec [Tresiba Flextouch U-100] 10 UNIT Subcuta neous daily July 14, 2018 July 16, 2018 Discontinued Inject 10 units ever y day for 1 week, then increase by 3-5 units until FBS is 120-150 Enoxaparin [Lovenox] 130 MG Subcutaneous Every 12 [...] Urticaria Active DVT (deep venous thrombosis) Active Procedures No known history of procedures. Relevant Diagnostic Tests and/or Laboratory Data Laboratory Results Test Date/Time Result Interp. Ref. Range Result Comment White Blood Count October 21, 2018 10:38am 12.8 10^3/uL High 4.5-1 1.0 Red Blood Count October 21, 2018 10:38am 5.82 10^6/uL 4.70-6. 00 Hemoglobin October 21, 2018 10:38am 18.3 g/dL High 13.5-17.5 Hematocrit October 21, 2018 10:38am 53.2 % High 41-53 Mean Corpuscular Volume October 21, 2018 10:38am 91.4 fL 7 9-99 Mean Corpuscular Hemoglobin October 21, 2018 10:38am 31.5 pg 25.0-34.0 Mean Corpuscular Hemoglobin Concent October 21, 2018 10:38am 34.5 g/dL 31.0-36.0 Red Cell Distribution Width October 21, 2018 10:38am 13.1 % 11.0-15.0 Platelet Count October 21, 2018 10:38am 243 10^3 uL 130-400 Mean Platelet Volume October 21, 2018 10:38am 9.7 fL 7.0- 11.0 Neutrophils % (Manual) October 21, 2018 10:38am 52.0 % 50 -65 Band Neutrophils % (Manual) October 21, 2018 10:38am 1.0 % 0-10 Lymphocytes % (Manual) October 21, 2018 10:38am 33.0 % 15 -45 Monocytes % (Manual) October 21, 2018 10:38am 8.0 % 0-10 Eosinophils % (Manual) October 21, 2018 10:38am 6.0 % High 0- 5 Neutrophils # (Manual) October 21, 2018 10:38am 6.8 # 1. 0-8.0 Lymphocytes # (Manual) October 21, 2018 10:38am 4.2 # High 1. 0-3.0 Monocytes # (Manual) October 21, 2018 10:38am 1.0 # 0.0- 1.0 Eosinophils # (Manual) October 21, 2018 10:38am 0.8 # High 0. 0-0.4 Sodium Level October 21, 2018 10:38am 139 mmol/L 135-150 Potassium Level October 21, 2018 10:38am 4.6 mmol/L 3.4-5.2 Chloride Level October 21, 2018 10:38am 103 mmol/L 100-112 Carbon Dioxide Level October 21, 2018 10:38am 25 mEq/L 18-3 0 Anion Gap October 21, 2018 10:38am 11 mmol/L 8-11 Blood Urea Nitrogen October 21, 2018 10:38am 13 mg/dL 5-21 Creatinine October 21, 2018 10:38am 1.04 mg/dL 0.60-1.30 Glomerular Filtration Rate Calc October 21, 2018 10:38am > 60 mL/Min > 60 The GFR is not validated for use in drug dosing adjustments. Continue to use estimated creatinine clearance per dosing reference text. Chronic Kidney Disease is defined as either kidney damage or a GFR less than 60 ml/min that persists for at least 3 months. Stage 3 = 30-59 ml/min Stage 4 = 15-29 ml/min Stage 5 = <15 ml/min Glucose Level October 21, 2018 10:38am 316 mg/dL High 70-99 Hemoglobin A1c October 21, 2018 10:38am 11.4 % High <6.4 Hemoglobin A1C levels are related to mean blood glucose during the preceding 2 - 3 months. The relationship table below may be used as a general guide. HGB A1C APPROX. MEAN GLUCOSE 5% 97 mg/dL 6% 126 mg/dL 7% 154 mg/dL 8% 183 mg/dL 9% 212 mg/dL 10% 240 mg/dL 11% 269 mg/dL 12% 298 mg/dL Each 1% increase in HGB A1C is a reflection of an increase in mean glucose of approximately 30 mg/dl. Calcium Level October 21, 2018 10:38am 10.3 mg/dL 8.6-10.5 Total Bilirubin October 21, 2018 10:38am 0.3 mg/dL 0.0-1.2 Aspartate Amino Transf (AST/SGOT) October 21, 2018 10:38am 13 U/L 6-37 Alanine Aminotransferase (ALT/SGPT) October 21, 2018 10:38am 24 U/L 12-78 Total Protein October 21, 2018 10:38am 7.8 g/dL 6.4-8.2 Albumin October 21, 2018 10:38am 4.2 g/dL 3.3-4.5 Albumin/Globulin Ratio October 21, 2018 10:38am 1.2 0. 7-2.0 Triglycerides Level October 21, 2018 10:38am 458 mg/dL High <149 LDL Cholesterol Direct October 21, 2018 10:38am 102 mg/dL High <9 9 Alkaline Phosphatase October 21, 2018 10:38am 93 U/L 50-1 36 Hospital Discharge Instructions No known hospital discharge instructions. Hospital Discharge Medications Medication Dose Units Route Sig Qty Days Order Date Status In structions Rosuvastatin 10 MG Oral daily July 04, 2018 Active Metformin 1000 MG Oral Twice a Day July 04 8 Active Insulin Regular Human UNIT Subcutaneous Nov 2017 Active Apixaban 5 MG Oral Twice a Day July 07, 2018 Active Hydrocodone-Acetaminophen 1 TAB Oral Q6H 2017 Discontinued Hydrocodone-Acetaminophen 1 TAB Oral Q6H 2017 Active Insulin Degludec 10 UNIT Subcutaneous daily July 14, 2018 Discontinued Inject 10 units every day for 1 week, then increase by 3-5 units until FBS is 120-150 Insulin Glargine 10 UNIT Subcutaneous daily July 16, 2018 Active Pen Needle, Diabetic 0 Route .MEDSUPPLY 100 2017 Active Use daily with lantus solostar pen Enoxaparin 130 MG Subcutaneous Every 12 Hours 4 January 172017 Discontinued Prednisone 0 Route .COMPLEX June 18, 2018 D iscontinued 3 tabs daily x 2 days, 2 tabs daily x 3 days, 1 tab daily x 3 days, 1/2 tab daily x 3 days, then stop Encounters Encounter Facility Location Admit/Visit Date Discharge/Departure Date Attending Provider Departed Clinical [facility] October 21, 2018 10:37am October 21, 2018 10:38am Odessa Hopson Departed Physician/Provider Office Visit [facility] Medical Partner [facility] Family Medicine October 21, 2018 9:58am October 21, 2018 10:39am Odessa Hopson Functional Status No known functional status. Immunizations No known immunizations. Payers Payer Name Policy Type Covered Green Party Covered Green Party Id Relationship Sub scriber Subscriber Id [employer] Medicaid Christoph Linker [id number] Self / Same As Patient Christopher Linker [id number] [facility] Medicaid Christopher Linker [id number] Self / Same As Patient Christopher Linker [id number] Self Pay Plan of Care No Known Plan of Care Information Social History No known social history. Vital Signs No known vital signs results.
--- OUTSIDE RECORDS SUMMARY | 2020-03-08 22:53 | XMS REPORT | Continuity of Care Document ---
[facility] Address [address] [place] [place] [address] Care Team Providers Care Shake Packer Name Role Phone Odessa Hopson PCP Odessa Hopson Attphys Allergies, Adverse Reactions, Alerts No known allergies. Medications Active Medications Medication Dose Units Route Sig Qty Start Date Status Enoxaparin [Lovenox] 130 MG Subcutaneous Every 12 Hours 4 February 01, 2018 Active Problem List Active Problems Medical Problem Onset Date Status DVT (deep venous thrombosis) Active Procedures Procedure Date Status US venous doppler LE LT February 03, 2018 completed Relevant Diagnostic Tests and/or Laboratory Data No known relevant diagnostic tests, laboratory data, and/or discharge summary. Chief Complaint and Reason for Visit Encounter Admit Date Chief Complaint Reason for Visit Departed Clinical February 03, 2018 11:25am Acute embolism and thrombosis of unspecified deep Hospital Discharge Instructions No known hospital discharge instructions. Hospital Discharge Medications Medication Dose Units Route Sig Qty Days Order Date Status In structions Enoxaparin 130 MG Subcutaneous Every 12 Hours 4 January 172017 Active Encounters Encounter Facility Location Admit/Visit Date Discharge/Departure Date Attending Provider Departed Clinical [facility] February 03, 2018 11:25am February 03, 2018 11:26am Odessa Hopson Departed Emergency [facility] J 2017 10:53pm February 01, 2018 11:51pm Functional Status No known functional status. Immunizations No known immunizations. Payers Payer Name Policy Type Covered Libertarian Covered Libertarian Id Relationship Sub scriber Subscriber Id [facility] Medicaid FRANCESCO FARFAN [id number] Self / Same As Patient FRANCESCO FARFAN [id number] Self Pay Plan of Care No Known Plan of Care Information Social History Query Response Date Recorded Comment substance use type does not use February 01, 2018 11:31pm Query Response Start Date Stop Date Smoking Status Current every day smoker Vital Signs Vital Reading Result Reference Range Collection Date/ Time Height 6 ft 4 in February 01, 2018 11 :03pm Weight 280 lb February 01, 2018 11 :03pm Temperature 98.9 F 97.5 F-99.5 F February 01, 2018 11 :03pm Pulse 87 BPM 60-90 February 01, 2018 11 :03pm Respiration 18 RPM 12-20 February 01, 2018 11 :03pm Pulse Oximetry 95 % 90-100 February 01, 2018 11 :03pm Blood Pressure Systolic 145 100-160 February 01, 2018 11:03pm Blood Pressure Diastolic 88 50-80 January 11:03pm Body Mass Index 34.0 February 01, 2018 11 :03pm
--- OUTSIDE RECORDS SUMMARY | 2020-03-08 22:53 | XMS REPORT | Continuity of Care Document ---
[facility] Address [address] [place] [address] Care Team Providers Care Haulage Boss Name Role Phone Unavailable Unavailable Allergies, Adverse Reactions, Alerts No known allergies. Medications Active Medications Medication Dose Units Route Sig Qty Start Date Status In structions Rosuvastatin 10 MG Oral daily July 04, 2018 A ctive Metformin 1000 MG Oral Twice a Day July 04, 2018 Active Insulin Regular Human UNIT Subcutaneous Novem 2017 Active Apixaban [Eliquis] 5 MG Oral Twice a Day July 07, 2018 Active Hydrocodone-Acetaminophen 1 TAB Oral Q6H er 2017 Active Insulin Glargine [Lantus Solostar U-100 Insulin] 10 UNIT S ubcutaneous daily July 16, 2018 Active Pen Needle, Diabetic [Comfort Ez Pen [place]] 0 Rout e .MEDSUPPLY 100 July 16, [...] Reason for Visit Departed Physician/Provider Office Visit October 21, 2018 9:58am fa sting lab Hospital Discharge Instructions No known hospital discharge instructions. Hospital Discharge Medications Medication Dose Units Route Sig Qty Days Order Date Status In structions Rosuvastatin 10 MG Oral daily July 04, 2018 Active Metformin 1000 MG Oral Twice a Day July 04 8 Active Insulin Regular Human UNIT Subcutaneous Jun Active Apixaban 5 MG Oral Twice a [...] Date Discharge/Departure Date Attending Provider Registered Clinical [facility] October 21, 2018 10:37am Odessa Hopson Departed Physician/Provider Office Visit [facility] Medical Partner s [facility] Family Medicine October 21, 2018 9:58am October 21, 2018 10:39am Odessa Hopson Functional Status No known functional status. Immunizations No known immunizations. Payers Payer Name Policy Type Covered Green Party Covered Green Party Id Relationship Sub scriber Subscriber Id [employer] Medicaid Christopher Linker [id number] Self / Same As Patient Christopher Linker [id number] [employer] Medicaid Christopher Linker [id number] Self / Same As Patient Lesbushra Adolph [id number] Self Pay Plan of Care No Known Plan of Care Information Social History No known social history. Vital Signs No known vital signs results.
--- OUTSIDE RECORDS SUMMARY | 2020-03-08 22:53 | XMS REPORT | Continuity of Care Document ---
[facility] Address [address] [place] [address] Care Team Providers Care It Telecom Technician Name Role Phone Unavailable Unavailable Allergies, Adverse [...] Active Hydrocodone-Acetaminophen 1 TAB Oral Q6H 15 er 2017 Active Discontinued Medications Medication Dose Units Route Sig Qty Start Date Discontinued Yinka e Status Instructions Hydrocodone-Acetaminophen 1 TAB Oral Q6H 15 er 2017July 07, 2018 Discontinued Enoxaparin [Lovenox] 130 MG Subcutaneous Every 12 [...] unavailable. Relevant Diagnostic Tests and/or Laboratory Data Laboratory Results Test Date/Time Result Interp. Ref. Range Result Comment Lipoprotein Evaluation July 08, 2018 8:46am See Separate Report Chief Complaint and Reason for Visit Encounter Admit Date Chief Complaint Reason for Visit Departed Physician/Provider Office Visit July 08, 2018 8:27a m lab Hospital Discharge Instructions No known hospital [...] Hydrocodone-Acetaminophen 1 TAB Oral Q6H 2017 Active Enoxaparin 130 MG Subcutaneous Every 12 Hours January 172017 Discontinued Prednisone 0 Route .COMPLEX June 18, 2018 D iscontinued 3 tabs daily x 2 days, 2 tabs daily x 3 days, 1 tab daily x 3 days, 1/2 tab daily x 3 days, then stop Encounters Encounter Facility Location Admit/Visit Date Discharge/Departure Date Attending Provider Registered Clinical [facility] July 08, 2018 8:42am Odessa Hopson Departed Physician/Provider Office Visit [facility] Medical Partner [facility] Family Medicine July 08, 2018 8:27am July 08, 2018 8:49am Odessa Hopson Departed Physician/Provider Office Visit [facility] Medical [facility] Family Medicine July 07, 2018 1:32pm July 07, 2018 4:16pm Odessa Hopson Functional Status No known functional status. Immunizations No known immunizations. Payers Payer Name Policy Type Covered Libertarian Covered Libertarian Id Relationship Sub scriber Subscriber Id [facility] Medicaid Christopher Linker [id number] Self / Same As Patient Christopher Linker [id number] Self Pay Plan of Care No Known Plan of Care Information Social History Query Response Date Recorded Comment service No July 07, 2018 7:14pm second hand exposure Yes July 07, 2018 7:14pm substance use type does not use July 07, 2018 7:14pm Query Response Start Date Stop Date Smoking Status Current every day smoker Vital Signs Vital Reading Result Reference Range Collection Date/ Time Height 6 ft 4 in July 07 2:05pm Weight 322 lb July 07 2:05pm Temperature 97.3 F 97.5 F-99.5 F July 07 2:05pm Pulse 113 BPM 60-90 July 07 2:05pm Respiration 16 RPM -July 07 2:05pm Pulse Oximetry 98 % 90-100 July 07 2:05pm Blood Pressure Systolic 110 100-160 July 07, 2018 2:05pm Blood Pressure Diastolic 74 50-80 [facility] 2017 2:05pm Body Mass Index 39.2 July 07 2:05pm
--- OUTSIDE RECORDS SUMMARY | 2020-03-08 22:53 | XMS REPORT | Continuity of Care Document ---
[facility] Address [address] [place] [address] Care Team Providers Care Tacker Elastic Band Name Role Phone Unavailable Unavailable Allergies, Adverse [...] for Visit Departed Physician/Provider Office Visit July 07, 2018 1:32p m Physical Exam Hospital Discharge Instructions No known hospital discharge instructions. Hospital Discharge Medications Medication Dose Units Route Sig Qty Days Order Date Status In structions Rosuvastatin 10 MG Oral daily July 04, 2018 Active Metformin 1000 MG Oral Twice a Day July 04 Active Insulin Regular Human UNIT Subcutaneous Jun [...] Date Attending Provider Departed Physician/Provider Office Visit [facility] Medical Partner s [facility] Family Medicine July 07, 2018 1:32pm July 07, 2018 4:16pm Odessa Hopson Functional Status No known functional status. Immunizations No known immunizations. Payers Payer Name Policy Type Covered Constitution Party Covered Constitution Party Id Relationship Sub scriber Subscriber Id [employer] Medicaid Christopher Linker [id number] Self / Same As Patient Christopher Linker [id number] Self Pay Plan of Care No Known Plan of Care Information Social History Query Response Date Recorded Comment service No July 07, 2018 2:37pm second hand exposure Yes July 07, 2018 2:37pm substance use type does not use July 07, 2018 2:37pm Query Response Start Date Stop Date Smoking Status Current every day smoker Vital Signs Vital Reading Result Reference Range Collection Date/ Time Height 6 ft 4 in July 07 8 2:05pm Weight 322 lb July 07 8 2:05pm Temperature 97.3 F 97.5 F-99.5 F July 07 8 2:05pm Pulse 113 BPM 60-90 July 07 8 2:05pm Respiration 16 RPM 12-20 July 07 8 2:05pm Pulse Oximetry 98 % 90-100 July 07 8 2:05pm Blood Pressure Systolic 110 100-160 July 07, 2018 2:05pm Blood Pressure Diastolic 74 50-80 [facility] 2:[facility] Body Mass Index 39.2 July 07 8 2:05pm
--- OUTSIDE RECORDS SUMMARY | 2020-03-08 22:53 | XMS REPORT | Continuity of Care Document ---
[facility] Address [address] [place] [address] Care Team Providers Care Grass Farmer Name Role Phone Unavailable Unavailable Allergies, Adverse Reactions, Alerts No known allergies. Medications Active Medications Medication Dose Units Route Sig Qty Start Date Status In structions Insulin Regular Human UNIT Subcutaneous Novem 2017 Active Apixaban [Eliquis] 5 MG Oral Twice a Day July 07, 2018 Active Hydrocodone-Acetaminophen 1 TAB Oral Q6H 15 er 2017 Active Insulin Glargine [Lantus Solostar U-100 Insulin] 10 UNIT S ubcutaneous daily 15 July 16, 2018 Active Pen Needle, Diabetic [Comfort Ez Pen [place]] 0 Rout e .MEDSUPPLY 100 July 16, 2018 Active Use daily with lantus solost ar pen Rosuvastatin 10 MG Oral daily 30 October 28, 2018 Acti ve Metformin 1000 MG Oral Twice a Day 60 October 28, 2018 Act [place] Discontinued Medications Medication Dose Units Route Sig Qty Start Date Discontinued Yinka e Status Instructions Rosuvastatin 10 MG Oral daily July 04, 2018 October 172018 Discontinued Metformin 1000 MG Oral Twice a Day July 04, 2018 October 28, 2018 Discontinued Hydrocodone-Acetaminophen 1 TAB Oral Q6H [...] Reason for Visit Departed Physician/Provider Office Visit November 06, 2018 10:5 0am Est/Medication management Hospital Discharge Instructions No known hospital discharge instructions. Hospital Discharge Medications Medication Dose Units Route Sig Qty Days Order Date Status In structions Rosuvastatin 10 MG Oral daily July 04, 2018 Discontinued Metformin 1000 MG Oral Twice a Day July 04 8 Discontinued Insulin Regular Human UNIT Subcutaneous Jun Active [...] Pen Needle, Diabetic 0 Route .MEDSUPPLY 100 Novem2017 Active Use daily with lantus solostar pen Rosuvastatin 10 MG Oral daily 30 October 28, 2018 Act [place] Metformin 1000 MG Oral Twice a Day 60 October 28, 2018 A ctive Enoxaparin 130 MG Subcutaneous Every 12 Hours 4 January 172017 Discontinued Prednisone 0 Route .COMPLEX 17 June 18, 2018 D iscontinued 3 tabs daily x 2 days, 2 tabs daily x 3 days, 1 tab daily x 3 days, 1/2 tab daily x 3 days, then stop Encounters Encounter Facility Location Admit/Visit Date Discharge/Departure Date Attending Provider Departed Physician/Provider Office Visit [facility] Medical Partner s [facility] Family Medicine November 06, 2018 10:50am November 06, 2018 3:37pm [place] Hopson Functional Status No known functional status. Immunizations No known immunizations. Payers Payer Name Policy Type Covered Green Party Covered Green Party Id Relationship Sub scriber Subscriber Id [employer] Medicaid Christopher Linker [id number] Self / Same As Patient Christopher Linker [id number] [facility] Medicaid Christopher Linker [id number] Self / Same As Patient Leoer Linker [id number] Self Pay Plan of Care No Known Plan of Care Information Social History No known social history. Vital Signs Vital Reading Result Reference Range Collection Date/ Time Height 6 ft 4 in November 06, 2018 1 1:07am Weight 300 lb November 06, 2018 1 1:07am Temperature 96.7 F 97.5 F-99.5 F November 06, 2018 1 1:07am Pulse 111 BPM 60-90 November 06, 2018 1 1:07am Respiration 16 RPM 12-20 November 06, 2018 1 1:07am Pulse Oximetry 97 % 90-100 November 06, 2018 1 1:07am Blood Pressure Systolic 130 100-160 October 11:07am Blood Pressure Diastolic 92 50-80 October 182018 11:07am Body Mass Index 36.5 November 06, 2018 1 1:07am
--- OUTSIDE RECORDS SUMMARY | 2020-03-08 22:53 | XMS REPORT | Continuity of Care Document ---
[facility] Address [address] [place] [address] Care Team Providers Care Control Technician Name Role Phone Odessa Hopson PCP Unavailable [...] Active Pen Needle, Diabetic [Comfort Ez Pen [place]] 0 Rout e .MEDSUPPLY 100 July 16, [...] Date Discharge/Departure Date Attending Provider Departed Clinical [facility] October 21, 2018 10:37am October 21, 2018 10:38am Odessa Hopson Departed Physician/Provider Office Visit [facility] Medical Partner s [facility] Family Medicine October 21, 2018 9:58am October 21, 2018 10:39am Odessa Hopson Functional Status No known functional status. Immunizations No known immunizations. Payers Payer Name Policy Type Covered Alliance Party Covered Alliance Party Id Relationship Sub scriber Subscriber Id [employer] Medicaid Christoph Linker [id number] Self / Same As Patient Christopher Linker [id number] [facility] Medicaid Christopher Linker [id number] 64 Self / Same As Patient Christopher Linker [id number] Self Pay Plan of Care No Known Plan of Care Information Social History No known social history. Vital Signs No known vital signs results.
--- OUTSIDE RECORDS SUMMARY | 2020-03-08 22:53 | XMS REPORT | Continuity of Care Document ---
[facility] Address [address] [place] [address] Care Team Providers Care Automotive Machinist Apprentice Name Role Phone Odessa Hopson PCP Antonio Elizondo Rndphys Allergies, Adverse Reactions, Alerts No known allergies. Medications Active Medications Medication Dose Units Route Sig Qty Start Date Status In structions Enoxaparin [Lovenox] 130 MG Subcutaneous Every 12 Hours 4 February 01, 2018 Active Prednisone 0 Route .COMPLEX June 18, 2018 Act ramon 3 tabs daily x 2 days, 2 tabs daily x 3 days, 1 tab daily x 3 days, 1/2 tab daily x 3 days, then stop Problem List Active Problems Medical Problem Onset Date Status Urticaria Active DVT (deep venous thrombosis) Active Procedures No known history of procedures. Relevant Diagnostic Tests and/or Laboratory Data No known relevant diagnostic tests, laboratory data, and/or discharge summary. Chief Complaint and Reason for Visit Encounter Admit Date Chief Complaint Reason for Visit Departed Emergency June 18, 2018 6:42pm rash Hospital Discharge Instructions Additional Discharge Instructions Home to rest. Take p rednisone in the morning with food. Take zyrtec during the day and benadryl at night. Check your blood sugar three times daily. The prednisone is likely to raise your sugars. Follow up with Odessa. Return with new or worsening symptoms. Instruction/Education Provided Urticaria (ED) Problem: Skin/Abscess/Foreign Body Goal: Identify any skin integrity issue/abscess/foreign body. Relief of pain/discomfort. Plan: Refer to patient instructions provided. Hospital Discharge Medications Medication Dose Units Route Sig Qty Days Order Date Status In structions Enoxaparin 130 MG Subcutaneous Every 12 Hours 4 January 172017 Active Prednisone 0 Route .COMPLEX June 18, 2018 A ctive 3 tabs daily x 2 days, 2 tabs daily x 3 days, 1 tab daily x 3 days, 1/2 tab daily x 3 days, then stop Encounters Encounter Facility Location Admit/Visit Date Discharge/Departure Date Attending Provider Departed Emergency [facility] June 18, 2018 8:09pm Functional Status No known functional status. Immunizations No known immunizations. Payers Payer Name Policy Type Covered Libertarian Covered Libertarian Id Relationship Sub scriber Subscriber Id Ivania [facility] Medicaid HANSER LINKER [id number] Self / Same As Patient VAHID LINKER [id number] Self Pay Plan of Care Instructions Urticaria (ED) Problem: Skin/Abscess/Foreign Body Goal: Identify any skin integrity issue/abscess/foreign body. Relief of pain/discomfort. Plan: Refer to patient instructions provided. Social History Query Response Date Recorded Comment second hand exposure Yes June 18, 2018 8:12pm substance use type does not use June 18, 2018 8:12pm Query Response Start Date Stop Date Smoking Status Current every day smoker Vital Signs Vital Reading Result Reference Range Collection Date/ Time Height 6 ft 4 in June 18, 2018 6:46pm Weight 310 lb June 18, 2018 6:46pm Temperature 98.9 F 97.5 F-99.5 F June 18, 2018 6:45pm Pulse 89 BPM 60-90 June 18, 2018 6:45pm Respiration 18 RPM 12-20 June 18, 2018 6:45pm Pulse Oximetry 99 % 90-100 June 18, 2018 6:45pm Blood Pressure Systolic 126 100-160 June 18, 2018 6:45pm Blood Pressure Diastolic 89 50-80 June 18, 2018 6:45pm Body Mass Index 37.7 June 18, 2018 6:46pm
--- OUTSIDE RECORDS SUMMARY | 2020-03-08 22:53 | XMS REPORT | Continuity of Care Document ---
[facility] Address [address] [place] [address] Care Team Providers Care Configuration Engineer Name Role Phone Odessa Hopson PCP Odessa [...] Oral Q6H er 2017July 07, 2018 Discontinued Enoxaparin [Lovenox] [...] Ref. Range Result Comment White Blood Count July 08, 2018 8:46am 13.9 10^3/uL High 4. 5-11.0 Red Blood Count July 08, 2018 8:46am 5.64 10^6/uL 4.70 -6.00 Hemoglobin July 08, 2018 8:46am 18.0 g/dL High 13.5-17.5 Hematocrit July 08, 2018 8:46am 51.6 % 41-53 Mean Corpuscular Volume July 08, 2018 8:46am 91.5 fL 79-99 Mean Corpuscular Hemoglobin July 08, 2018 8:46am 31.9 pg 25.0-34.0 Mean Corpuscular Hemoglobin Concent July 08, 2018 8:46am 34.9 g /dL 31.0-36.0 Red Cell Distribution Width July 08, 2018 8:46am 13.0 % 11.0-15.0 Platelet Count July 08, 2018 8:46am 254 10^3 uL 130-40 0 Mean Platelet Volume July 08, 2018 8:46am 10.0 fL 7 .0-11.0 Neutrophils % (Manual) July 08, 2018 8:46am 54.0 % 50-65 Lymphocytes % (Manual) July 08, 2018 8:46am 34.0 % 15-45 Monocytes % (Manual) July 08, 2018 8:46am 9.0 % 0 -10 Eosinophils % (Manual) July 08, 2018 8:46am 3.0 % 0-5 Neutrophils # (Manual) July 08, 2018 8:46am 7.5 # 1.0-8.0 Lymphocytes # (Manual) July 08, 2018 8:46am 4.7 # High 1.0-3.0 Monocytes # (Manual) July 08, 2018 8:46am 1.3 # High 0 .0-1.0 Eosinophils # (Manual) July 08, 2018 8:46am 0.4 # 0.0-0.4 Urine Color July 08, 2018 9:34am Yellow Urine Appearance July 08, 2018 9:34am Clear Urine pH July 08, 2018 9:34am 5.0 Urine Specific [place] July 08, 2018 9:34am 1.020 Urine Protein July 08, 2018 9:34am Negative Urine Glucose (UA) July 08, 2018 9:34am Negative Urine Ketones July 08, 2018 9:34am 1+ High Urine Blood July 08, 2018 9:34am 3+ High Urine Nitrite July 08, 2018 9:34am Negative Urine Bilirubin July 08, 2018 9:34am Negative Urine Urobilinogen July 08, 2018 9:34am 0.2 Urine Leukocyte Esterase July 08, 2018 9:34am Negative Urine Random Creatinine July 08, 2018 8:46am 67.98 mg/dL 30-125 Urine Random Microalbumin July 08, 2018 8:46am 9.0 mg/L 0-30 Urine Microalbumin/Creatinine Ratio July 08, 2018 8:46am 13.2 mg 0-30 Normal Excretion Rate less than 30 mg albumin/g creatinine. Sodium Level July 08, 2018 8:46am 135 mmol/L 135-150 Potassium Level July 08, 2018 8:46am 3.8 mmol/L 3.4-5. 2 Chloride Level July 08, 2018 8:46am 102 mmol/L 100-112 Carbon Dioxide Level July 08, 2018 8:46am 22 mEq/L 1 8-30 Anion Gap July 08, 2018 8:46am 11 mmol/L 8-11 Blood Urea Nitrogen July 08, 2018 8:46am 16 mg/dL 5- 21 Creatinine July 08, 2018 8:46am 1.10 mg/dL 0.60-1.30 Glomerular Filtration Rate Calc July 08, 2018 8:46am > 60 mL/Min The GFR is not validated for use in drug dosing adjustments. Continue to use estimated creatinine clearance per dosing reference text. Chronic Kidney Disease is defined as either kidney damage or a GFR less than 60 ml/min that persists for at least 3 months. Stage 3 = 30-59 ml/min Stage 4 = 15-29 ml/min Stage 5 = <15 ml/min Glucose Level July 08, 2018 8:46am 361 mg/dL High 70-99 Hemoglobin A1c July 08, 2018 8:46am 9.1 % High Hemoglobin A1C levels are related to mean [...] glucose of approximately 30 mg/dl. Calcium Level July 08, 2018 8:46am 9.8 mg/dL 8.6-10.5 Total Bilirubin July 08, 2018 8:46am 0.3 mg/dL 0.0-1. 2 Aspartate Amino Transf (AST/SGOT) July 08, 2018 8:46am 18 U/L 6-37 Alanine Aminotransferase (ALT/SGPT) July 08, 2018 8:46am 32 U/L 12-78 Total Protein July 08, 2018 8:46am 8.0 g/dL 6.4-8.2 Albumin July 08, 2018 8:46am 3.9 g/dL 3.3-4.5 Albumin/Globulin Ratio July 08, 2018 8:46am 1.0 0.7-2.0 Alkaline Phosphatase July 08, 2018 8:46am 95 U/L 5 0-136 Thyroid Stimulating Hormone (Reflex July 08, 2018 8:46am 1.931 uIU/mL 0.35-4.94 Lipoprotein Evaluation July 08, 2018 8:46am See Separate Report Hospital Discharge Instructions No known hospital discharge [...] Admit/Visit Date Discharge/Departure Date Attending Provider Departed [facility] July 08, 2018 8:42am July 08, 2018 8:43am Odessa Hopson Departed Physician/Provider Office Visit [facility] Family Medicine July 08, 2018 8:27am July 08, 2018 8:49am Odessa Hopson Departed Physician/Provider Office Visit [facility] Medical [facility] Family Medicine July 07, 2018 1:32pm July 07, 2018 4:16pm Odessa Hopson Functional Status No known functional status. Immunizations No known immunizations. Payers Payer Name Policy Type Covered Democrat Covered Democrat Id Relationship Sub scriber Subscriber Id [employer] Medicaid Christestelleer Linker [id number] Self / Same As Patient Vahid Farfan [id number] Self Pay Plan of Care No Known [...] 2018 2:05pm Blood Pressure Diastolic 74 50-80 [facility] 2017 2:05pm Body Mass Index 39.2 July 07 8 2:05pm
--- OUTSIDE RECORDS SUMMARY | 2020-03-08 22:53 | XMS REPORT | Continuity of Care Document ---
Author [facility] Address [address] [place] [address] Care Team Providers Care Airbrush Artist Name Role Phone Odessa Hopson PCP Unavailable LibrodVlad lawson Unavailable Allergies, Adverse Reactions, Alerts No known allergies. Medications Active Medications Medication Dose Units Route Sig Qty Start Date Status In structions Apixaban [Eliquis] 5 MG Oral Twice a Day July 07, 2018 Active Hydrocodone-Acetaminophen 1 TAB Oral Q6H er 2017 Active Insulin Glargine [Lantus Solostar U-100 Insulin] 10 UNIT S ubcutaneous daily July 16, 2018 Active Metformin 1000 MG Oral Twice a Day 60 October 28, 2018 Act ramon Insulin Regular Human [Novolin R Regular U-100 Insuln] 1 sliding scale dose Subcutaneous Use as Directed November 10, 2018 Active He takes s liding scale: 150-200 3 units; 201-250 6 units, 251-30 0 9 units; 301-350 12 units Insulin Syringe-Needle U-100 [Bd Insulin Syringe Ultra-Fine] 0 Route .MEDSUPPLY 100 November 10, 2018 Active Use for Novolog Injections Blood Sugar Diagnostic [True Metrix Glucose Test Strip] 0 Route .MEDSUPPLY 100 November 12, 2018 Active Check bs twice daily and as needed Rosuvastatin 10 MG Oral daily November 24, 2018 Activ e Discontinued Medications Medication Dose Units Route Sig Qty Start Date Discontinued Yinka e Status Instructions Rosuvastatin 10 MG Oral daily July 04, 2018 October 172018 Discontinued Metformin 1000 MG Oral Twice a Day July 04, 2018 October 28, 2018 Discontinued Insulin Regular Human UNIT Subcutaneous Novem 2017November 07, 2018 Discontinued Hydrocodone-Acetaminophen 1 TAB Oral Q6H er 2017July 07, 2018 Discontinued Insulin Degludec [Tresiba Flextouch U-100] 10 UNIT Subcuta neous daily 15 July 14, 2018 July 16, 2018 Discontinued Inject 10 units ever y day for 1 week, then increase by 3-5 units until FBS is 120-150 Pen Needle, Diabetic [Comfort Ez Pen [place]] 0 Rout e .MEDSUPPLY 100 July 16, 2018 November 07, 2018 Discontinued Use daily with lantu s solostar pen Rosuvastatin 10 MG Oral daily October 28, 2018November 8, 2 019 Discontinued Insulin Lispro [Humalog U-100 Insulin] 1 [...] 10, 2018 November 10, 2018 Discontinu ed Enoxaparin [Lovenox] 130 MG Subcutaneous Every 12 Hours 4 February 01, 2018 July 07, 2018 Discontinued Prednisone 0 Route .COMPLEX 17 June 18, 2018Jun Discontinued 3 tabs daily x 2 days, 2 tabs daily x 3 days, 1 tab daily x 3 days, 1/2 tab daily x 3 days, then stop Problem List Active Problems Medical Problem Onset Date Status Urticaria Active DVT (deep venous thrombosis) Active Diabetes type 2, uncontrolled Active Procedures Procedure Date Status MR lumbar spine wo con November 25, 2018 completed Relevant Diagnostic Tests and/or Laboratory Data No known relevant diagnostic tests, laboratory data, and/or discharge summary. Chief Complaint and Reason for Visit Encounter Admit Date Chief Complaint Reason for Visit Departed Clinical November 25, 2018 10:48am Other intervertebr al disc displacement, lumbosacra Hospital Discharge Instructions No known hospital discharge [...] Day 60 October 28, 2018 A ctive Insulin Lispro 1 sliding scale dose Subcutaneous [...] Use as Dir ected November 10, 2018 Active He takes sliding scale: 150-200 3 units; 201-250 6 units, 251-30 0 9 units; 301-350 12 units Insulin Syringe-Needle U-100 0 Route .MEDSUPPLY 100 November 10, 2018 Active Use for Novolog Injections Blood Sugar Diagnostic 0 Route .MEDSUPPLY 100 [place] h 2018 Active Check bs twice daily and as needed Rosuvastatin 10 MG Oral daily November 24, 2018 Acti ve Enoxaparin 130 MG Subcutaneous Every 12 Hours 4 January 172017 Discontinued Prednisone 0 Route .COMPLEX June 18, 2018 D iscontinued 3 tabs daily x 2 days, 2 tabs daily x 3 days, 1 tab daily x 3 days, 1/2 tab daily x 3 days, then stop Encounters Encounter Facility Location Admit/Visit Date Discharge/Departure Date Attending Provider Departed [facility] Radiology November 25, 2018 10:48am November 25, 2018 10:49am Vlad Carrion Functional Status No known functional status. Immunizations No known immunizations. Payers Payer Name Policy Type Covered Constitution Party Covered Constitution Party Id Relationship Sub scriber Subscriber Id [employer] Medicaid Christoph Linker [id number] Self / Same As Patient Christopher Linker [id number] [employer] Medicaid Christopher Linker [id number] Self / Same As Patient Christopher Linker [id number] Self Pay Plan of Care No Known Plan of Care Information Social History No known social history. Vital Signs No known vital signs results.
--- OUTSIDE RECORDS SUMMARY | 2020-03-08 22:53 | XMS REPORT | Continuity of Care Document ---
Author Author [facility] Address [address] [place] [address] Care Team Providers Care Major Gifts Manager Name Role Phone Odessa Hopson PCP Odessa Hopson Attphys Allergies, Adverse Reactions, Alerts No allergy information available. Medications No medication information available. Problem List No problem information available. Procedures No known history of procedures. Relevant Diagnostic Tests and/or Laboratory Data Laboratory Results Test Date/Time Result Interp. Ref. Range Result Comment Urine Random Microalbumin September 05, 2017 9:06am 5.0 mg/L 0-30 Sodium Level September 05, 2017 9:06am 138 mmol/L 135-150 Potassium Level September 05, 2017 9:06am 4.3 mmol/L 3.4-5.2 Chloride Level September 05, 2017 9:06am 101 mmol/L 100-112 Carbon Dioxide Level September 05, 2017 9:06am 25 mEq/L 18 -30 Anion Gap September 05, 2017 9:06am 12 mmol/L High 8-11 Blood Urea Nitrogen September 05, 2017 9:06am 15 mg/dL 5-2 1 Creatinine September 05, 2017 9:06am 0.88 mg/dL 0.60-1.30 Glomerular Filtration Rate Calc September 05, 2017 9:06am > 60 mL/Min The GFR is not [...] Stage 5 = <15 ml/min Glucose Level September 05, 2017 9:06am 201 mg/dL High 70-99 Hemoglobin A1c September 05, 2017 9:06am 8.2 % High Hemoglobin A1C levels are related [...] glucose of approximately 30 mg/dl. Calcium Level September 05, 2017 9:06am 9.3 mg/dL 8.6-10.5 Total Bilirubin September 05, 2017 9:06am 0.2 mg/dL 0.0-1.2 Aspartate Amino Transf (AST/SGOT) September 05, 2017 9:06am 23 U/L 6-37 Alanine Aminotransferase (ALT/SGPT) September 05, 2017 9:06am 37 U/L 12-78 Total Protein September 05, 2017 9:06am 7.5 g/dL 6.4-8.2 Albumin September 05, 2017 9:06am 3.8 g/dL 3.3-4.5 Albumin/Globulin Ratio September 05, 2017 9:06am 1.0 0.7-2.0 Alkaline Phosphatase September 05, 2017 9:06am 86 U/L 50 -136 Hospital Discharge Instructions No known hospital discharge instructions. Encounters Encounter Facility Location Admit/Visit Date Discharge/Departure Date Attending Provider Departed [facility] September 05, 2017 9:06am September 05, 2017 9:07am Odessa Hopson Functional Status No known functional status. Immunizations No known immunizations. Payers Payer Name Policy Type Covered Republican Covered Republican Id Relationship Sub scriber Subscriber Id [employer] Medicaid Self Pay Plan of Care No Known Plan of Care Information Social History No known social history. Vital Signs No known vital signs results.
--- OUTSIDE RECORDS SUMMARY | 2020-03-08 22:53 | XMS REPORT | Continuity of Care Document ---
Author [facility] Address [address] [place] [address] Care Team Providers Care Reefer Truck Driver Name Role Phone Odessa Hopson PCP Halle Kc Rndphys Allergies, Adverse Reactions, Alerts No known allergies. Medications Active Medications Medication Dose Units Route Sig Qty Start Date Status Enoxaparin [Lovenox] 130 MG Subcutaneous Every 12 Hours 4 February 01, 2018 Active Problem List Active Problems Medical Problem Onset Date Status DVT (deep venous thrombosis) Active Procedures No known history of procedures. Relevant Diagnostic Tests and/or Laboratory Data No known relevant diagnostic tests, laboratory data, and/or discharge summary. Chief Complaint and Reason for Visit Encounter Admit Date Chief Complaint Reason for Visit Departed Emergency February 01, 2018 10:53pm Leg Pain Hospital Discharge Instructions Additional Discharge Instructions Home to rest. You w ere given a shot of lovenox in the emergency room. Continue to take this, it is 130mg, subcutaneously, every 12 hours, and also take your coumadin tonight, doubling the initial dose, and then taking as prescribed. Follow up with Odessa Hopson on Saturday for a check of your INR, and then also obtain an ultrasound of your left lower leg. Instruction/Education Provided Deep Vein Thrombosis (E D) Deep Vein Thrombosis Prevention (ED) Problem: Extremity Problem, Nontraumatic Goal: Identify an injury. Relief of pain, stabilize. Plan: Refer to patient instructions provided. Hospital Discharge Medications Medication Dose Units Route Sig Qty Days Order Date Status In structions Enoxaparin 130 MG Subcutaneous Every 12 Hours 4 January 172017 Active Encounters Encounter Facility Location Admit/Visit Date Discharge/Departure Date Attending Provider Departed Emergency [facility] Emergency Department J 2017 10:53pm February 01, 2018 11:51pm Functional Status No known functional status. Immunizations No known immunizations. Payers Payer Name Policy Type Covered Libertarian Covered Libertarian Id Relationship Sub scriber Subscriber Id Ivania [employer] Medicaid FRANCESCO ROBERSON [id number] Self / Same As Patient FRANCESCO ROBERSON [id number] Self Pay Plan of Care Instructions Deep Vein Thrombosis (ED) Deep Vein Thrombosis Prevention (ED) Problem: Extremity Problem, Nontraumatic Goal: Identify an injury. Relief of pain, stabilize. Plan: Refer to patient instructions provided. Social [...]
--- OUTSIDE RECORDS SUMMARY | 2020-03-08 22:53 | XMS REPORT | Continuity of Care Document ---
Author [facility] Address [address] [place] [address] Care Team Providers Care Tie Fastener Name Role Phone Odessa Hopson PCP Odessa Hopson Attphys Allergies, Adverse Reactions, Alerts No allergy information available. Medications No medication information available. Problem List No problem information available. Procedures Procedure Date Status MR lumbar spine wo con September 16, 2017 completed Relevant Diagnostic Tests and/or Laboratory Data No known relevant diagnostic tests, laboratory data, and/or discharge summary. Chief Complaint and Reason for Visit Encounter Admit Date Chief Complaint Reason for Visit Departed Clinical September 16, 2017 8:40am LUMBAGO W/SCIATI CA, R SIDE, LUMBAGO W/SCIATICA, L Hospital Discharge Instructions No known hospital discharge instructions. Encounters Encounter Facility Location Admit/Visit Date Discharge/Departure Date Attending Provider Departed Clinical [facility] Radiology September 16 018 8:40am September 16, 2017 8:41am Odessa Hopson Functional Status No known functional status. Immunizations No known immunizations. Payers Payer Name Policy Type Covered Libertarian Covered Libertarian Id Relationship Sub scriber Subscriber Id [facility] Medicaid ROGELIOOPHER DA [id number] Self / Same As Patient FRANCESCO ROBERSON [id number] Self Pay Plan of Care No Known Plan of Care Information Social History No known social history. Vital Signs No known vital signs results.
--- OUTSIDE RECORDS SUMMARY | 2020-03-08 22:53 | XMS REPORT | Continuity of Care Document ---
Author [facility] Address [address] [place] [address] Care Team Providers Care Agency Appointments Supervisor Name Role Phone Odessa Hopson PCP Chiquita Medina Rndphys Allergies, Adverse Reactions, Alerts No known allergies. Medications Active Medications Medication Dose Units Route Sig Qty Start [facility]] 130 MG Subcutaneous Every 12 [...] Sig Qty Days Order Date Status In [facility] Enoxaparin 130 MG Subcutaneous Every 12 Hours 4 January 172017 Active Prednisone 0 Route .COMPLEX June 18, 2018 A ctive 3 tabs daily x 2 days, 2 tabs daily x 3 days, 1 tab daily x 3 days, 1/2 tab daily x 3 days, then stop Encounters Encounter Facility Location Admit/Visit Date Discharge/Departure Date Attending Provider Departed [facility] 6:[facility] June 18, 2018 8:09pm Functional Status No known functional status. Immunizations No known immunizations. Payers Payer Name Policy Type Covered Alliance Party Covered Alliance Party Id Relationship Sub scriber Subscriber Id [employer] Medicaid VAHID LINKER [id number] Self / Same As Patient VAHID LINKER [id number] Self Pay Plan of Care Instructions Urticaria (ED) Problem: Skin/Abscess/Foreign Body Goal: Identify any skin integrity issue/abscess/foreign body. Relief of pain/discomfort. Plan: Refer to patient instructions provided. Social History Query Response Date Recorded Comment second hand exposure Yes June 18, 2018 8:03pm substance use type does not use June 18, 2018 8:03pm Query Response Start Date Stop Date Smoking [...]
--- OUTSIDE RECORDS SUMMARY | 2020-03-08 22:54 | XMS REPORT | Continuity of Care Document ---
Author Organization Unknown Address Unknown Phone Unavailable Allergies Active Description Code Type Severity Reaction Onset Reported/Identified Relationship to Patient Clinical Status Yes No Known Medication Allergies Drug N/A N/A Yes No Known Drug Allergy NKDA N/A N/A 02/03/2018 Yes No Known Allergies No Known Allergies Allergy N/A N/A 01/06/2019 Medications Medication Packaging Start Date St op Date Route Dosage Sig metformin Tablet 07/04 PO 1000 MG rosuvastatin Tablet 07/04/2018 PO 10 MG hydrocodone-acetaminophen Ta blet 07/07/2018 PO 1 TAB apixaban Tablet 2017 PO 5 MG pen needle, diabetic Needle 07/16/2018 .ROUTE 0 insulin glargine Insulin Pen 07/16/2018 SUBCUT 10 UNIT metformin Tablet 10/28 PO 1000 MG rosuvastatin Tablet 10/28/2018 PO 10 MG insulin syringe-needle U-100 Syringe 11/10/2018 .ROUTE 0 insulin regular human Soluti on 11/10/2018 SUBCUT 1 sliding scale dos e blood sugar diagnostic Strip 11/12/2018 .ROUTE 0 rosuvastatin Tablet 11/24/2018 PO 10 MG metformin Tablet 12/02 PO 1000 MG insulin regular human Soluti on 12/10/2018 SUBCUT 1 sliding scale dos e insulin glargine Insulin Pen 01/06/2019 SUBCUT 13 UNIT Problems Date Dx Coded Attending Type Code Diagnosis Diagnosed By 09/04/2017 Odessa Hopson E11.6 5 Type 2 diabetes mellitus with hyperglycemia 09/04/2017 Odessa Hopson E78.2 Mixed hyperlipidemia 09/04/2017 Odessa Hopson M54.4 1 Lumbago with sciatica, right side 09/04/2017 Odessa Hopson M54.4 2 Lumbago with sciatica, left side 09/04/2017 Odessa Hopson Z86.7 11 Personal history of pulmonary embolism 09/10/2017 Odessa Hopson E11.6 5 Type 2 diabetes mellitus with hyperglycemia 09/10/2017 Odessa Hopson F E78.2 Mixed hyperlipidemia 02/03/2018 F Z01.818 En counter for other preprocedural examination 02/03/2018 W I82.409 Ac josué embolism and thrombosis of unspecified deep veins of u 02/03/2018 Mark Anthony Odessa F I82.4 09 Acute embolism and thrombosis of unspecified deep veins of unspecified lower extremity 04/29/2018 W M48.062 Sp inal stenosis, lumbar region with neurogenic claudication 04/29/2018 W 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, lumbar reg 05/06/2018 W M48.062 Sp inal stenosis, lumbar region with neurogenic claudication 05/06/2018 W 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, lumbar reg 06/18/2018 Antonio Elizondo, BRODIE W L5 0.9 Urticaria, unspecified 07/07/2018 Odessa Hopson Z00.0 0 Encounter for general adult medical examination without abno 10/21/2018 Odessa Hopson W E11.9 Type 2 diabetes mellitus without complications 10/21/2018 Odessa Hopson D72.8 29 Elevated white blood cell count, unspecified 10/21/2018 Odessa Hopson W E11.9 Type 2 diabetes mellitus without complications 10/21/2018 Odessa Hopson W E78.2 Mixed hyperlipidemia 10/21/2018 Odsesa Hopson D72.8 29 Elevated white blood cell count, unspecified 10/21/2018 Odessa Hopson W E11.9 Type 2 diabetes mellitus without complications 10/21/2018 Odessa Hopson E78.2 Mixed hyperlipidemia 10/21/2018 Odessa Hopson D72.8 29 Elevated white blood cell count, unspecified 10/21/2018 Odessa Hopson E11.9 Type 2 diabetes mellitus without complications 10/21/2018 Odessa Hopson W E78.2 Mixed hyperlipidemia 11/21/2018 Sheyla GILBERT, Vlad Llanes M51.27 Other intervertebral disc displacement, lumbosacral re gion 11/24/2018 Sheyla GILBERT, Vlad Llanes M51.27 Other intervertebral disc displacement, lumbosacral re gion 11/24/2018 Sheyla GILBERT, Vlad Llanes M51.27 Other intervertebral disc displacement, lumbosacral re gion 11/25/2018 Sheyla GILBERT, Vlad Llanes M51.27 Other intervertebral disc displacement, lumbosacral re gion 01/06/2019 Peter DO~JESAU, Ana E W Z01.810 Encounter for preprocedural cardiovascular examination Peter DO~JESAU, Ana E 01/06/2019 Peter DO~JESAU, Ana E W Z01.810 Encounter for preprocedural cardiovascular examination Peter DO~JESAU, Ana E 01/06/2019 Peter DO~JESAU, Ana E W Z01.810 Encounter for preprocedural cardiovascular examination Peter DO~JESAU, Ana E 01/06/2019 Peter DO~JESAU, Ana E W Z01.810 Encounter for preprocedural cardiovascular examination Peter DO~JESAU, Ana E 01/08/2019 Peter DO~JESAU, Ana E W R00.0 Tachycardia, unspecified Peter DO~JESAU, Deyanira ifer E 01/08/2019 Peter DO~JESAU, Ana E W Z01.810 Encounter for preprocedural cardiovascular examination Peter DO~JESAU, Ana E Procedures Code Description [place] [address] OFFI CE/OUTPATIENT VISIT, NEW 09/04/2017 54680 ROUT INE VENIPUNCTURE 09/05/2017 26713 COMP REHEN METABOLIC PANEL 09/05/2017 20964 MICR OALBUMIN, QUANTITATIVE 09/05/2017 44656 GLYC OSYLATED HEMOGLOBIN TEST 09/05/2017 36159 OFFI CE/OUTPATIENT VISIT, EST 09/10/2017 02170 PROT HROMBIN TIME 02/03/2018 27152 OFFI CE/OUTPATIENT VISIT, EST 02/03/2018 Results Test Result Range Hemoglobin A1C - 09/05/17 09:06 HEMOGLOBIN A1C 8.2 % < 6.5 Comprehensive Metabolic Panel - 09/05/17 09:06 BILIRUBIN TOTAL 0.2 mg/dL 0.0-1.2 BUN 15 mg/dL 5-21 CHLORIDE 101 mmol/L 100-112 CARBON DIOXIDE 25 mEq/L 18-30 POTASSIUM 4.3 mmol/L 3.4-5.2 SODIUM 138 mmol/L 135-150 GFR ESTIMATE > 60 mL/Min > 60 Anion Gap 12 mmol/L 8-11 Creatinine 0.88 mg/dL 0.60-1.30 Glucose 201 mg/dL 70-99 Calcium 9.3 mg/dL 8.6-10.5 Aspartate Amino Transferase 23 U/L 6- 37 Alanine Aminotransferase 37 U/L 12-78 Total Protein 7.5 g/dL 6.4-8.2 Albumin 3.8 g/dL 3.3-4.5 Albumin/Globulin Ratio 1.0 0.7-2.0 Alkaline Phosphatase 86 U/L 50-136 Microalbumin,Urine Random - 09/05/17 09: 06 Microalbumin,Urine Random 5.0 mg/L 0-30 PT/INR - 02/03/18 12:09 Prothrombin 1.0 NRG Lipoprotein Fractionation, CIQ - 8 08:46 LP FRACTIONS CO See Separate Report NRG LDL PARTICLE NU 1020 nmol/L 732-2035 LDL SMALL 186 nmol/L 85-473 LDL MEDIUM 124 nmol/L 122-498 HDL LARGE 5380 nmol/L 5465-2147 LDL PATTERN B Pattern A LDL PEAK SIZE 203.4 Angstrom > OR = 217. 4 Lipid Panel, Cardio IQ - 07/08/18 08:46 Cholesterol, Cardio IQ 165 mg/dL <200 Triglycerides, Cardio IQ 710 mg/dL <150 HDL Cholesterol, Cardio IQ 33 mg/dL >40 Chol/HDL Ratio, Cardio IQ 5.0 calc <5.0 LDL Calculated, Cardio IQ SEE NOTE mg/dL <100 Non HDL Calculated, Cardio IQ 132 <130 Complete Blood Count Man Dif - 07/08/18 08:46 HEMOGLOBIN 18.0 g/dL 13.5-17.5 PLATELET COUNT 254 10 3 uL 130-400 WHITE BLOOD CELL COUNT 13.9 10 3/uL 4.5- 11.0 HEMATOCRIT 51.6 % 41-53 MEAN CORPUSCULAR VOLUME 91.5 fL 79-99 MEAN CORPUSCULAR HEMOGLOBIN 31.9 pg 25 .0-34.0 MEAN CELL HEMOGLOBIN CONC. 34.9 g/dL 31. 0-36.0 RED CELL DISTRIBUTION WIDTH 13.0 % 11 .0-15.0 MEAN PLATELET VOLUME 10.0 fL 7.0-11.0 Red Blood Count 5.64 10 6/uL 4.70-6.00 Neutrophils % (Manual) 54.0 % 50-65 Lymphocytes % (Manual) 34.0 % 15-45 Monocytes % (Manual) 9.0 % 0-10 Eosinophils % (Manual) 3.0 % 0-5 Neutrophils # (Manual) 7.5 # 1.0-8.0 Lymphocytes # (Manual) 4.7 # 1.0-3.0 Monocytes # (Manual) 1.3 # 0.0-1.0 Eosinophils # (Manual) 0.4 # 0.0-0.4 Hemoglobin A1C - 07/08/18 08:46 HEMOGLOBIN A1C 9.1 % < 6.5 Comprehensive Metabolic Panel - 07/08/18 08:46 BILIRUBIN TOTAL 0.3 mg/dL 0.0-1.2 BUN 16 mg/dL 5-21 CHLORIDE 102 mmol/L 100-112 CARBON DIOXIDE 22 mEq/L 18-30 POTASSIUM 3.8 mmol/L 3.4-5.2 SODIUM 135 mmol/L 135-150 GFR ESTIMATE > 60 mL/Min > 60 Anion Gap 11 mmol/L 8-11 Creatinine 1.10 mg/dL 0.60-1.30 Glucose 361 mg/dL 70-99 Calcium 9.8 mg/dL 8.6-10.5 Aspartate Amino Transferase 18 U/L 6- 37 Alanine Aminotransferase 32 U/L 12-78 Total Protein 8.0 g/dL 6.4-8.2 Albumin 3.9 g/dL 3.3-4.5 Albumin/Globulin Ratio 1.0 0.7-2.0 Alkaline Phosphatase 95 U/L 50-136 TSH w/Reflex Free T4 - 07/08/18 08:46 TSH - REFLEX T4 1.931 uIU/mL 0.35-4.94 Microalb/Creat Ratio, Random - 07/08/18 08:46 Creatinine,Urine Random 67.98 mg/dL 30-1 25 Microalbumin,Urine Random 9.0 mg/L 0-30 Microalbum/Creatinine Ratio,Ur 13.2 mg 0-30 Urinalysis w/o Microscopic - 07/08/18 09 :34 GLUCOSE Negative Negative KETONE 1+ Negative SPECIFIC GRAVIT 1.020 1.010-1.025 Color, Urine Yellow Yellow pH, Urine 5.0 4.5 - 7.5 Bilirubin, Urine Negative Negative Urobilinogen, Urine 0.2 <=1.0 Appearance, Urine Clear Clear Protein, Urine Negative Neg-Trace Blood, Urine 3+ Negative Leukocyte Esterase,Urine Negative Negat ramon Nitrite, Urine Negative Negative Complete Blood Count Renzo Mckinley - 10/21/18 10:38 HEMOGLOBIN 18.3 g/dL 13.5-17.5 PLATELET COUNT 243 10 3 uL 130-400 WHITE BLOOD CELL COUNT 12.8 10 3/uL 4.5- 11.0 HEMATOCRIT 53.2 % 41-53 MEAN CORPUSCULAR VOLUME 91.4 fL 79-99 MEAN CORPUSCULAR HEMOGLOBIN 31.5 pg 25 .0-34.0 MEAN CELL HEMOGLOBIN CONC. 34.5 g/dL 31. 0-36.0 RED CELL DISTRIBUTION WIDTH 13.1 % 11 .0-15.0 MEAN PLATELET VOLUME 9.7 fL 7.0-11.0 Red Blood Count 5.82 10 6/uL 4.70-6.00 Neutrophils % (Manual) 52.0 % 50-65 Band Neutrophils %(Manual) 1.0 % 0-1 0 Lymphocytes % (Manual) 33.0 % 15-45 Monocytes % (Manual) 8.0 % 0-10 Eosinophils % (Manual) 6.0 % 0-5 Neutrophils # (Manual) 6.8 # 1.0-8.0 Lymphocytes # (Manual) 4.2 # 1.0-3.0 Monocytes # (Manual) 1.0 # 0.0-1.0 Eosinophils # (Manual) 0.8 # 0.0-0.4 Comprehensive Metabolic Panel - 10/21/18 10:38 BILIRUBIN TOTAL 0.3 mg/dL 0.0-1.2 BUN 13 mg/dL 5-21 CHLORIDE 103 mmol/L 100-112 CARBON DIOXIDE 25 mEq/L 18-30 POTASSIUM 4.6 mmol/L 3.4-5.2 SODIUM 139 mmol/L 135-150 GFR ESTIMATE > 60 mL/Min > 60 Anion Gap 11 mmol/L 8-11 Creatinine 1.04 mg/dL 0.60-1.30 Glucose 316 mg/dL 70-99 Calcium 10.3 mg/dL 8.6-10.5 Aspartate Amino Transferase 13 U/L 6- 37 Alanine Aminotransferase 24 U/L 12-78 Total Protein 7.8 g/dL 6.4-8.2 Albumin 4.2 g/dL 3.3-4.5 Albumin/Globulin Ratio 1.2 0.7-2.0 Alkaline Phosphatase 93 U/L 50-136 Triglycerides - 10/21/18 10:38 TRIGLYCERIDES 458 mg/dL < 150 LDL Cholesterol, Direct - 10/21/18 10:38 LDL Cholesterol, Direct 102 mg/dL < 100 Hemoglobin A1C - 10/21/18 10:38 HEMOGLOBIN A1C 11.4 % < 6.5 Complete Blood Count Renzo Mckinley - 01/06/19 15:10 HEMOGLOBIN 17.6 g/dL 13.5-17.5 PLATELET COUNT 271 10 3 uL 130-400 WHITE BLOOD CELL COUNT 12.0 10 3/uL 4.5- 11.0 HEMATOCRIT 50.7 % 41-53 MEAN CORPUSCULAR VOLUME 90.5 fL 79-99 MEAN CORPUSCULAR HEMOGLOBIN 31.5 pg 25 .0-34.0 MEAN CELL HEMOGLOBIN CONC. 34.8 g/dL 31. 0-36.0 RED CELL DISTRIBUTION WIDTH 13.0 % 11 .0-15.0 MEAN PLATELET VOLUME 8.5 fL 7.0-11.0 Red Blood Count 5.60 10 6/uL 4.70-6.00 Neutrophils % (Manual) 61.0 % 50-65 Band Neutrophils %(Manual) 1.0 % 0-1 0 Lymphocytes % (Manual) 36.0 % 15-45 Eosinophils % (Manual) 2.0 % 0-5 Neutrophils # (Manual) 7.4 # 1.0-8.0 Lymphocytes # (Manual) 4.3 # 1.0-3.0 Eosinophils # (Manual) 0.2 # 0.0-0.4 Radiology Report from [id number] on 09:33:00 [facility] [address] [place] [address] Magnetic Resonance Report Signed Patient: FRANCESCO ROBERSON MR#: [id number] : 1980 Acct:[id number] Age/Sex: 37 / MADM Date: 09/16/17 Loc: RAD Attending Dr: Odessa Hopson [employer] Ordering Physician: Odessa Hopson Date of Service: 09/16/17 Procedure(s): MR lumbar spine wo con Accession Number(s): [id number] Clinical history: Lumbago with sciatica bilaterally. Comparison: None. Findings: Multiplanar and multi sequence MR imaging of the lumbar spine is performed without the prior intravenous administration of gadolinium contrast. The lower most disc space is labeled as L5-S1. The vertebral body heights appear overall to be within normal limits. There is some straightening of the lumbar spine and minimal reversal at the T12 through L2 level. Otherwise, the alignment appears normal. Schmorl's nodes with adjacent edema at the superior and inferior L4 level and adjacent degenerative change. Degenerative endplate change at the inferior L4 and L5 levels. There is a hemangioma at L1. No bone marrow signal abnormality otherwise. No significant abnormal soft tissue edema posteriorly. The spinal cord is normal in course and caliber and signal intensity, as seen. Conus medullaris appears normal and terminates at the T12-L1 level. Paraspinal muscles appear to be within normal limits. Vessels appear to be within normal limits. There is an accessory retro aortic left renal vein. No further intra- abdominal abnormality. T12-L1: No disc bulge or protrusion. No spinal canal stenosis or significant neural foraminal narrowing. L1-L2: Circumferential disc bulging at this level with some reversal of the normal lumbar lordosis with flattening of the anterior thecal sac. Facet joint and ligamentum flavum hypertrophy is seen without significant spinal canal stenosis. No significant bilateral neural foraminal narrowing. L2-L3: Circumferential disc bulge at this level flattens the anterior thecal sac. There is facet joint and ligamentum flavum hypertrophy with mild fluid in the facet joints. Overall there may be some minimal trefoil type narrowing of the spinal canal and there is some mild bilateral neural foraminal narrowing. L3-L4: Circumferential disc bulge at this level flattens the anterior thecal sac. There is facet joint and ligamentum flavum hypertrophy with fluid in the facet joints and some minimal trefoil type narrowing of the spinal canal. There is also some mild bilateral neural foraminal narrowing. L4-5: There is circumferential disc bulging at this level along with possible annular fissure right paracentral region which effaces the anterior thecal sac. There is facet joint and ligamentum flavum hypertrophy with minimal mild trefoil type narrowing of the spinal canal. There is at least mild bilateral neural foraminal narrowing slightly greater on the right. L5-S1: There is circumferential disc bulging at this level as well as the central disc bulge measuring 5.8 mm in AP dimension and 1.8 cm in transverse dimension and effaces the anterior thecal sac. There is facet joint and ligamentum flavum hypertrophy. There is overall at least mild to jefh-tf-dahkgefq narrowing of the spinal canal. There also appears to be mild bilateral neural foraminal kalina rowing. Impression: 1. Osteoarthritic and degenerative disc changes at multiple levels as described above. There is some mild reversal of the normal lumbar lordosis from T12 through L2 and otherwise some minimal straightening. Alignment otherwise is normal. There is some mild circumferential bulging at multiple levels with overall some minimal trefoil type narrowing of the spinal canal at several levels and some mild neural foraminal narrowing. At the L4-5 level there is effacement of the anterior thecal sac and some minimal to mild narrowing of the spinal canal and mild bilateral neural foraminal narrowing greater on the right and at L5-S1 there is circumferential bulging with superimposed central disc bulge which causes overall at least mild to bvgu-bt-kjfozchu narrowing of the spinal canal and mild bilateral neural foraminal narrowing. 2. There is some minimal fluid within the facet joints at several levels. Schmorl's nodes at several levels. Other findings and details, as above. Dictated By: Rayna Aleman Signed By: 09/16/1733 DD/ 1 TD/TT: Head Sugar Reprocess Operator: LINUS cc: Odessa Hopson Radiology Report from [id number] on 15:37:[address] [address] Ultrasound Report Signed Patient: Francesco Roberson MR#: [id number] : 1980 Acct:[id number] Age/Sex: 37 / M ADM Date: 02/03/18 Loc: RAD Attending Provider: Odessa Hopson [employer] Ordering Provider: Odessa Hopson Date of Service: 02/03/18 Procedure(s): US venous doppler LE Accession Number(s): [id number] Clinical history: Acute embolism and thrombosis of unspecified E the ins of the left lower extremity. Comparison: None. Findings: Duplex Doppler sonographic evaluation of the left lower extremity venous system is performed with and without compression and with color Doppler interrogation and waveform analysis. Common femoral vein is compressible as is the superficial femoral vein throughout. These vessels demonstrate color flow with venous waveform with augmentation as do the greater saphenous vein and deep femoral vein. Popliteal vein is compressible throughout the majority though distally there is question of incomplete compressibility which may represent chronic DVT. There is color flow with venous waveform with augmentation throughout. No evidence for acute DVT is seen. Posterior tibial vein demonstrates color flow below the knee. Impression: 1. There is question of incomplete compressibility of the very distal popliteal vein which likely indicates a chronic incompletely occlusive DVT. Patient reportedly has a history of DVT in the left popliteal vein. There is no occlusive or acute thrombus identified, however. The remainder of the examination demonstrates normal findings without further evidence for DVT. Dictated By: Rayna Aleman Signed By: 02/03/18 1536 DD/ 1536 TD/TT: Head Sugar Reprocess Operator: LINUS cc: Odessa Hopson Radiology Report from [id number] on 04/2019 11:50:00 [place] [address] Magnetic Resonance Report Signed Patient: Francesco Roberson MR#: [id number] : 1980 Acct:[id number] Age/Sex: 38 / M ADM Date: 11/25/18 Loc: RAD Attending Provider: Vlad Carrion MD Ordering Provider: Vlad Carrion Date of Service: 11/25/18 Procedure(s): MR lumbar spine wo con Accession Number(s): [id number] Clinical history: Low back pain Comparison: September 16, 2017 Technique: Multiplanar multi sequence MRI lumbar spine without contrast. Findings: The vertebral bodies are well aligned. The lumbar spine maintains a normal lordosis. No compression fracture is appreciated. The conus medullaris terminates at the L1 level. The distal spinal cord is normal in signal and caliber. There is no paraspinal soft tissue abnormality. Evaluation of the retroperitoneum is unremarkable. L1/2: Mild disc bulging. L2/3: Unremarkable. L3/4: Disc degeneration with mild disc bulging. L4/5: Mild concentric disc bulging. L5/S1: Large central disc protrusion. This causes mild spinal canal stenosis. The disc abuts the bilateral S1 nerve roots in the lateral recesses. Impression: Large central disc protrusion at L5/S1. The disc causes mild spinal canal stenosis and abuts the S1 nerve roots in the lateral recesses. Dictated By: Myles Taveras Signed By: 11/25/18 1149 DD/ 1149 TD/TT: Head Sugar Reprocess Operator: KOMAL cc: Vlad Carrion; Odessa Hopson APRN Radiology Report from [facility] on 01/07/20 15:41:00 [place] [address] XRay Report Signed Patient: Francesco Roberson MR#: [id number] : 1980 Acct:[id number] Age/Sex: 38 / M ADM Date: 01/06/19 Loc: LAB CLINIC Attending Provider: Ana Green DO Ordering Provider: Ana Green Date of Service: 01/06/19 Procedure(s): XR chest 2V Accession Number(s): [id number] EXAM: Chest, 2 Views INDICATION: Preop chest x-ray. TECHNIQUE: AP and lateral views COMPARISON: None. FINDINGS: The heart and mediastinum are within normal limits and the airway is patent and midline. Pulmonary vessels are within normal limits. There is no hilar or mediastinal mass. The lungs demonstrate no consolidation or other acute process. No free air below the diaphragm. There is no pleural effusion or pneumothorax. There may be some minimal anterior wedging of 1 of the upper lumbar vertebra or lower lumbar vertebra age indeterminate. Prior MRI of lumbar spine of 11/25/2018 demonstrates this to be T12 with a similar appearance and a prominent Schmorl's node. No acute osseous abnormality. IMPRESSION: No evidence for acute process within the chest. Other findings and details, as above. Dictated By: Rayna Aleman Signed By: 01/06/19 154 DD/ 39 TD/TT: Head Sugar Reprocess Operator: LINUS cc: Ana Green; Odessa Hopson APRN Radiology Report from [facility] on 01/12/20 18:42:00 [place] [address] [place] [address] Ultrasound Report Signed Patient: Francesco Roberson MR#: [id number] : 1980 Acct:[id number] Age/Sex: 38 / M ADM Date: 01/09/19 Loc: [facility] Attending Provider: Ana Green DO Ordering Provider: Ana Green Date of Service: 01/09/19 Procedure(s): US echocardiogram ultrasound Accession Number(s): [id number] Date of Service: 01/09/2019 Type of Procedure: Transthoracic echocardiogram Interpreting Flatwork Catcher: Dejon Madrid MD, [facility] Indication for Procedure: Not stated. Description of Procedure: Transthoracic echocardiography was performed with 2-dimensional imaging, Doppler spectral analysis, and color-flow imaging. The rhythm was sinus, with heart rates in the 80s. Impression: 1. Normal cardiac chamber sizes. 2. Normal left ventricular systolic function, ejection fraction 60%. 3. No evidence of significant left ventricular diastolic dysfunction. 4. Normal right ventricular systolic function. 5. No evidence of pericardial effusion. 6. Normal cardiac valves. 7. Tricuspid insufficiency not significant enough to allow accurate estimation of pulmonary artery systolic pressure. 8. Sinus rhythm. Dictated By: Dejon Madrid Signed By: 01/11/191840 DD/ 40 TD/TT: Head Sugar Reprocess Operator: GILBERT cc: Ana Hopson APRN Encounters ACCT No. Visit Date/Time Discharge Status Pt. Type Provider Facility Loc./Unit Complaint [id number] 02/03/2018 10:26:00 02/03/2018 23:59: 59 [facility] Outpatient Odessa Hopson [facility] Family Medicine [id number] 02/03/2018 10:01:00 02/03/2018 23:59: 59 CLS Outpatient [facility] [id number] 02/03/2018 10:00:00 02/03/2018 23:59: 59 CLS Outpatient [facility] [id number] 09/10/2017 09:09:00 09/10/2017 23:59: 59 CLS Outpatient Odessa Hopson [facility] [id number] 09/05/2017 09:00:00 09/05/2017 23:59: 59 CLS Outpatient [facility] [id number] 09/04/2017 14:08:00 09/04/2017 23:59: 59 CLS Outpatient Odessa Hopson [facility] [id number] 03/04/2017 08:54:01 ACT Unknown [id number] 07/25/2017 13:39:00 7 15:50:00 DIS Emergency DEJA WATKINS L [facility] blood sugar [id number] 12/02/2016 20:25:00 7 22:53:00 DIS Emergency JUNEDEJA LECHUGA [facility] Possible blood clot [id number] 12/02/2016 20:35:12 Document Registration [id number] 01/30/2020 23:19:00 01/30/2020 23:59: 00 DIS Preadmit [id number] 03/28/2019 23:19:00 03/28/2019 23:59: 00 DIS Preadmit [id number] 04/26/2018 00:02:00 04/26/2018 23:59: 00 DIS Preadmit [id number] 01/09/2019 08:07:00 08:08:00 DIS Outpatient Peter DO~Ana SMART [facility] Sinus tachycardia [id number] 01/07/2019 10:17:00 23:59:00 DIS Outpatient Peter DO~Ana SMARTRHCFM repeat EKG, [id number] 01/06/2019 13:56:00 15:20:00 DIS Outpatient Peter DO~Ana SMARTRHCFM surgery on 01/20 preop clearan ce and labs [id number] 01/06/2019 15:09:00 15:10:00 DIS Outpatient Ana Tavarez LAB CLINIC [id number] 11/25/2018 10:48:00 10:49:00 DIS Outpatient Sheyla GILBERT, Vlad Bagley [facility] RAD Other intervertebral disc di splacement, lumbosacra [id number] 11/06/2018 10:50:00 15:37:00 DIS Outpatient MARIA ELENA Milian.RHCFM Est/Medication management [id number] 10/30/2018 10:59:00 23:59:59 CLS Outpatient MARIA ELENA Milian.RHCFM Medication Management, lab r esults [id number] 10/21/2018 09:58:00 10:39:00 DIS Outpatient Odessa HopsonRHCFM fasting lab [id number] 10/21/2018 10:37:00 10:38:00 DIS Outpatient Odessa Hopson LAB CLINIC [id number] 07/08/2018 08:27:00 08:49:00 DIS Outpatient Odessa Hopson lab [id number] 07/08/2018 08:42:00 08:43:00 DIS Outpatient Odessa Hopson LAB CLINIC [id number] 07/07/2018 13:32:00 16:16:00 DIS Outpatient Odessa Hopson ADULTHM [id number] 06/18/2018 18:42:00 20:09:00 DIS Emergency Antonio Elizondo PA-C [facility] ED rash [id number] 09/09/2017 11:15:00 23:59:59 CLS Preadmit Odessa Hopson [facility] RAD LUMBAGO W/SCIATICA, R SIDE, LUMBAGO W/SCIATICA, L [id number] 09/05/2017 09:06:00 018 23:59:59 [facility] Outpatient Odessa Hopson [facility] LAB CLINIC [id number] 01/07/2019 16:20:00 Document Registration [id number] 05/06/2018 15:30:00 Document Registration [id number] 02/03/2018 11:25:00 Document Registration [id number] 02/01/2018 22:53:00 Document Registration
== END 2020-03-08 20:20 | disposition home or self-care (01) ==
LOC: ER 19:24
DX: L02.11 Cutaneous abscess of neck (principal); E11.9 Type 2 diabetes mellitus without complications; Z86.711 Personal history of pulmonary embolism
CPT/HCPCS: 87070; 87205; 99283

== ENCOUNTER 2020-11-29 11:45 | Emergency (ER) | payer MEDICAID ==
[~2020-11-29] VITALS: Ht 193 cm; Wt 132.0 kg
[~2020-11-29 11:45] MED LIST: SULF1TAB35 PO
--- NOTE | 2020-11-29 12:10 | ED EENT ---
History of Present Illness General Chief Complaint: Facial Problems Stated Complaint: R SIDED FACE WOUND Source: patient Exam Limitations: no limitations History of Present Illness Date Seen by Provider: Nov 29, 2020 Time Seen by Provider: 12:00 Initial Comments To ER with swelling to the left cheek for about a day and a half. He is insulin-dependent diabetic. No fevers or chills. He is not sure what caused this. He has a similar-appearing lesion to the nape of his neck. Timing/Duration: abrupt Severity: moderate Location: facial Prearrival Treatment: no prearrival treatment Associated Symptoms: denies symptoms Allergies and Home Medications Allergies Coded Allergies: No Known Drug Allergies (Unverified , 03/08/20) Home Medications Amoxicillin/Potassium Clav 1 Each Tablet, 1 EACH PO BID Prescribed by: KRISHAN PIEDRA on 11/29/201404 Hydrocodone/Acetaminophen 1 Each Tablet, 1 TAB PO Q4H PRN for PAIN-MODERATE (5- 7) Prescribed by: KRISHAN PIEDRA on 11/29/201405 Sulfamethoxazole/Trimethoprim 1 Each Tablet, 1 EACH PO BID Prescribed by: ARBEN BOUDREAUX on 03/08/202015 Sulfamethoxazole/Trimethoprim 1 Each Tablet, 1 EACH PO BID Prescribed by: KRISHAN PIEDRA on 11/29/201404 Patient Home Medication List Home Medication List Reviewed: Yes Review of Systems Review of Systems Constitutional: see HPI Eyes: No Symptoms Reported Ears: No Symptoms Reported Nose: no symptoms reported Mouth: see HPI Throat: no symptoms reported Respiratory: no symptoms reported Cardiovascular: no symptoms reported Musculoskeletal: no symptoms reported Skin: see HPI Neurological: See HPI, Emotional Problems Past Nwmjcys-Ubamgw-Spldyl Hx Patient Social History Recent Hopitalizations: No Seasonal Allergies Seasonal Allergies: No Past Medical History Surgeries: Yes Tonsillectomy Respiratory: Yes Pulmonary Embolism Cardiac: No Neurological: No Genitourinary: No Gastrointestinal: No Musculoskeletal: No Endocrine: Yes Diabetes, Non-Insulin dep HEENT: No Cancer: No Psychosocial: No Integumentary: No Blood Disorders: No Physical Exam Vital Signs Vital Signs - First Documented 11/29/20 12:05 Temp 36.1 Pulse 109 Resp 20 B/P (MAP) 132/87 (102) Pulse Ox 97 O2 Delivery Room Air Height, Weight, BMI Height: '" Weight: lbs. oz. kg; 35.00 BMI Method: General Appearance: WD/WN, no apparent distress Eyes: bilateral eye normal inspection, bilateral eye PERRL, bilateral eye EOMI Ears: bilateral ear auricle normal, bilateral ear canal normal, bilateral ear TM normal Mouth/Throat: normal mouth inspection, pharynx normal, other (The left external cheek is quite swollen with some overlying erythema in the region of the parotid.) Neck: non-tender, full range of motion Respiratory: no respiratory distress, no accessory muscle use Neurologic/Psychiatric: alert, normal mood/affect, oriented x 3 Procedures/Interventions I&D : Blade Size: 11 Progress Using 11 blade to open the already draining abscess to the nape of his neck. A culture was collected from this wound. There was no culture collected from the left cheek. Progress/Results/Core Measures Results/Orders Lab Results Laboratory Tests Test 11/29/20 12:10 Range/Units White Blood Count 12.8 H 4.3-11.0 10^3/uL Red Blood Count 5.42 4.30-5.52 10^6/uL Hemoglobin 16.8 13.3-17.7 g/dL Hematocrit 49 40-54 % Mean Corpuscular Volume 91 80-99 fL Mean Corpuscular Hemoglobin 31 25-34 pg Mean Corpuscular Hemoglobin Concent 34 32-36 g/dL Red Cell Distribution Width 12.7 10.0-14.5 % Platelet Count 203 130-400 10^3/uL Mean Platelet Volume 9.9 9.0-12.2 fL Immature Granulocyte % (Auto) 1 % Neutrophils (%) (Auto) 71 42-75 % Lymphocytes (%) (Auto) 14 12-44 % Monocytes (%) (Auto) 11 0-12 % Eosinophils (%) (Auto) 2 0-10 % Basophils (%) (Auto) 1 0-10 % Neutrophils # (Auto) 9.1 H 1.8-7.8 10^3/uL Lymphocytes # (Auto) 1.8 1.0-4.0 10^3/uL Monocytes # (Auto) 1.4 H 0.0-1.0 10^3/uL Eosinophils # (Auto) 0.3 0.0-0.3 10^3/uL Basophils # (Auto) 0.1 0.0-0.1 10^3/uL Immature Granulocyte # (Auto) 0.2 H 0.0-0.1 10^3/uL Sodium Level 132 L 135-145 MMOL/L Potassium Level 4.0 3.6-5.0 MMOL/L Chloride Level 99 98-107 MMOL/L Carbon Dioxide Level 15 L 21-32 MMOL/L Anion Gap 18 H 5-14 MMOL/L Blood Urea Nitrogen 13 7-18 MG/DL Creatinine 0.95 0.60-1.30 MG/DL Estimat Glomerular Filtration Rate > 60 BUN/Creatinine Ratio 14 Glucose Level 377 H 70-105 MG/DL Calcium Level 10.1 8.5-10.1 MG/DL Beta-Hydroxybutyrate (Chem panel) 4.40 H 0.00-0.27 MMOL/L My Orders Orders - KRISHAN PIEDRA APRN Cbc With Automated Diff (11/29/20 12:06) Basic Metabolic Panel (11/29/20 12:06) Ed Iv/Invasive Line Start (11/29/20 12:06) Ct Maxillofacial W (11/29/20 12:06) Ns Iv 1000 Ml (Sodium Chloride 0.9%) (11/29/20 12:15) Clindamycin 900 Mg/50 Ml Ivpb (Cleocin P (11/29/20 12:15) Hydrocodone/Apap 5/325 Tablet (Lortab 5 (11/29/20 12:15) Ketorolac Injection (Toradol Injection) (11/29/20 12:15) Wound Culture (11/29/20 12:08) Iohexol Injection (Omnipaque 350 Mg/Ml 1 (11/29/20 13:00) Received Contrast (Hold Metformin- Contr (11/29/20 13:00) Ns (Ivpb) (Sodium Chloride 0.9% Ivpb Bag (11/29/20 13:00) Beta Hydroxybutyrate (11/29/20 12:51) Ns Iv 1000 Ml (Sodium Chloride 0.9%) (11/29/20 14:15) Medications Given in ED Current Medications Medications Dose Ordered Sig/Mary Route Start Time Stop Time Status Last Admin Dose Admin Acetaminophen/ Hydrocodone Bitart 1 ea ONCE ONCE PO 11/29/20 12:15 11/29/20 12:16 DC 11/29/20 12:43 1 EA Clindamycin Phosphate/Dextrose 50 ml @ 100 mls/hr ONCE ONCE IV 11/29/20 12:15 11/29/20 12:44 DC 11/29/20 12:42 100 MLS/HR Iohexol 75 ml ONCE ONCE IV 11/29/20 13:00 11/29/20 13:01 DC 11/29/20 13:10 75 ML Ketorolac Tromethamine 15 mg ONCE ONCE IVP 11/29/20 12:15 11/29/20 12:16 DC 11/29/20 12:43 15 MG Sodium Chloride 100 ml ONCE ONCE IV 11/29/20 13:00 11/29/20 13:01 DC 11/29/20 13:10 80 ML Vital Signs/I&O 11/29/20 11/29/20 11/29/20 11/29/20 12:05 12:43 12:43 14:33 Temp 36.1 36.1 36.1 36.1 Pulse 109 88 Resp 20 20 B/P (MAP) 132/87 (102) 132/87 (102) Pulse Ox 97 97 O2 Delivery Room Air Room Air Diagnostic Imaging Diagonstic Imaging: CT Comments NAME: FRANCESCO ROBERSON [facility] REC#: [id number] PT STATUS: REG ER : 1980 PHYSICIAN: KRISHAN PIEDRA APRN ADMIT DATE: 11/29/20/ER Draft Date of Exam:11/29/20 CT MAXILLOFACIAL W PROCEDURE: CT maxillofacial with contrast. TECHNIQUE: After intravenous administration of contrast, axial images were obtained through the face and reformatted into coronal and sagittal planes. Auto Exposure Controls were utilized during the CT exam to meet ALARA standards for radiation dose reduction. INDICATION: Left cheek swelling for 1-1/2 days. FINDINGS: There is edema and swelling in the soft tissues of the left face from the level of the mandible superiorly to approximately the level of the zygomatic arch. There is significant infiltration and inflammatory stranding in the subcutaneous fat, to the level of the masseter muscle. No discrete fluid collection or abscess is identified. Visualized intracranial structures are unremarkable. The posterior nasopharynx and oropharynx are unremarkable. Parapharyngeal fat planes are preserved. No tonsillar abscess is seen. There are some prominent lymph nodes in the left jugulodigastric and submandibular location which are likely reactive. The parotid and submandibular glands are unremarkable. There is a large periapical cyst involving the maxillary right lateral incisor. IMPRESSION: 1. Significant swelling in the left face subcutaneous tissues, consistent with left facial cellulitis. No discrete fluid collection or abscess is seen. There is reactive lymphadenopathy in the left neck. 2. Large periapical cyst in the right maxillary lateral incisor. Dictated on workstation # [id number] Dict: 11/29/20 1349 Trans: 11/29/20 1358 [id number] Interpreted by: BRENDAN COOPER MD Electronically signed by: Departure Communication (Admissions) 1404-CT does not reveal any fluid collection amenable to drainage. Labs do reveal diabetic ketoacidosis with an elevated beta hydroxybutyrate. I discussed with him the need for admission IV fluids and insulin drip. He states that he really cannot stay. His recently left him and he is got a lot going on at home. He agrees to receive 1 more bag of IV fluids and be discharged home. Again I did recommend admission and he declined. Impression Primary Impression: Cellulitis and abscess of face Additional Impression: DKA (diabetic ketoacidoses) Disposition: 01 HOME, SELF-CARE Condition: Stable Departure-Patient Inst. Decision time for Depature: 14:04 Referrals: NO,LOCAL PHYSICIAN (PCP/Family) Primary Care Physician Patient Instructions: Cellulitis (Skin Infection), Adult ED Add. Discharge Instructions: 1. Warm compresses to the area. Pain medication as directed. Antibiotics as directed. Return to ER for any worsening such as nausea vomiting or general malaise. Keep a close eye on your blood sugars and take your insulin as directed to keep it under control. Increase your fluid intake. All discharge instructions reviewed with patient and/or family. Voiced understanding. Scripts Hydrocodone/Acetaminophen (Hydrocodone-Acetamin 5-325 mg) 1 Each Tablet 1 TAB PO Q4H PRN for PAIN-MODERATE (5-7), #14 TAB Prov: KRISHAN PIEDRA APRN 11/29/20 Sulfamethoxazole/Trimethoprim (Bactrim Ds Tablet) 1 Each Tablet 1 EACH PO BID, #14 TAB Prov: KRISHAN PIEDRA APRN 11/29/20 Amoxicillin/Potassium Clav (Augmentin 875-125 Tablet) 1 Each Tablet 1 EACH PO BID, #14 TAB 0 Refills Prov: KRISHAN PIEDRA APRN 11/29/20 KRISHAN PIEDRA APRN Nov 29, 2020 12:10
[2020-11-29] MEDS ORDERED: HYDROcodone/APAP 5 MG/325 MG (LORTAB) TAB PO ONE (12:15)
[2020-11-29] MEDS ORDERED: NS IV 1000 ML 1,000 ML IV SCH ×2 (12:15→14:15)
[2020-11-29] MEDS ORDERED: KETOROLAC 30 MG/ML VIAL IVP ONE (12:15)
[2020-11-29] MEDS ORDERED: CLINDAMYCIN 900 MG/50 ML IVPB 50 ML IV ONE (12:15)
[2020-11-29 12:17] LABS: BASOPHILS # (AUTO) 0.1 10^3/uL (0.0-0.1); BASOPHILS % (AUTO) 1 % (0-10); EOSINOPHILS # (AUTO) 0.3 10^3/uL (0.0-0.3); EOSINOPHILS % (AUTO) 2 % (0-10); HEMATOCRIT 49 % (40-54); HEMOGLOBIN 16.8 g/dL (13.3-17.7); LYMPHOCYTES # (AUTO) 1.8 10^3/uL (1.0-4.0); LYMPHOCYTES % (AUTO) 14 % (12-44); MEAN CORPUSCULAR HEMOGLOBIN 31 pg (25-34); MEAN CORPUSCULAR HGB CONC 34 g/dL (32-36); MEAN CORPUSCULAR VOLUME 91 fL (80-99); MEAN PLATELET VOLUME 9.9 fL (9.0-12.2); MONOCYTES # (AUTO) 1.4 10^3/uL (0.0-1.0); MONOCYTES % (AUTO) 11 % (0-12); NEUTROPHILS # (AUTO) 9.1 10^3/uL (1.8-7.8); NEUTROPHILS % (AUTO) 71 % (42-75); PLATELET COUNT 203 10^3/uL (130-400); WHITE BLOOD COUNT 12.8 10^3/uL (4.3-11.0)
[2020-11-29 12:38] LABS: CHLORIDE 99 MMOL/L (98-107); SODIUM 132 MMOL/L (135-145)
[2020-11-29 12:39] LABS: CALCIUM 10.1 MG/DL (8.5-10.1)
[2020-11-29 12:40] LABS: GLUCOSE 377 MG/DL (70-105)
[2020-11-29 12:41] LABS: CARBON DIOXIDE 15 MMOL/L (21-32)
[2020-11-29 12:44] LABS: CREATININE SERUM 0.95 MG/DL (0.60-1.30); GFR ESTIMATED > 60
[2020-11-29 12:45] LABS: BUN/CREATININE RATIO 14
[2020-11-29] MEDS ORDERED: IOHEXOL 350 MG/ML 100 ML (OMNIPAQUE 350) VIAL IV ONE (13:00)
[2020-11-29] MEDS ORDERED: NS 100 ML (IVPB) BAG IV ONE (13:00)
[2020-11-29] MEDS ORDERED: HOLD METFORMIN - RECEIVED CONTRAST 20 ML VIAL IV SCH (13:00)
--- NOTE | 2020-11-29 13:58 | Diagnostic Imaging Report ---
PROCEDURE: CT maxillofacial with contrast. TECHNIQUE: After intravenous administration of contrast, axial images were obtained through the face and reformatted into coronal and sagittal planes. Auto Exposure Controls were utilized during the CT exam to meet ALARA standards for radiation dose reduction. INDICATION: Left cheek swelling for 1-1/2 days. FINDINGS: There is edema and swelling in the soft tissues of the left face from the level of the mandible superiorly to approximately the level of the zygomatic arch. There is significant infiltration and inflammatory stranding in the subcutaneous fat, to the level of the masseter muscle. No discrete fluid collection or abscess is identified. Visualized intracranial structures are unremarkable. The posterior nasopharynx and oropharynx are unremarkable. Parapharyngeal fat planes are preserved. No tonsillar abscess is seen. There are some prominent lymph nodes in the left jugulodigastric and submandibular location which are likely reactive. The parotid and submandibular glands are unremarkable. There is a large periapical cyst involving the maxillary right lateral incisor. IMPRESSION: 1. Significant swelling in the left face subcutaneous tissues, consistent with left facial cellulitis. No discrete fluid collection or abscess is seen. There is reactive lymphadenopathy in the left neck. 2. Large periapical cyst in the right maxillary lateral incisor. Dictated by: Dictated on workstation # [id number]
[2020-11-29] MEDS ORDERED: AMOX-358 PO (14:05)
[2020-11-29] MEDS ORDERED: SULF1TAB35 PO (14:05)
[2020-11-29] MEDS ORDERED: ACHD5005 PO (14:05)
[2020-11-29 14:33] VITALS: BP 132/87
== END 2020-11-29 14:33 | disposition home or self-care (01) ==
LOC: EDUNIT# 11:45 → ER 11:47
DX: L03.211 Cellulitis of face (principal); L02.01 Cutaneous abscess of face; E10.10 Type 1 diabetes mellitus with ketoacidosis without coma
CPT/HCPCS: 36415; 70487; 80048; 82010; 85025; 87070; 87077; 87186; 87205; 96374; 96375

== ENCOUNTER 2020-11-30 16:02 | Observation (INO) | payer MEDICAID ==
[~2020-11-30] VITALS: Ht 193 cm; Wt 131.5 kg
[~2020-11-30 16:02] MED LIST changes: +ACHD5005 PO; +AMOX-358 PO
[2020-11-30] MEDS ORDERED: NS IV 1000 ML 1,000 ML IV SCH ×2 (16:30→17:30)
--- NOTE | 2020-11-30 16:52 | Diagnostic Imaging Report ---
Indication: Sepsis Portable chest 4:41 PM Heart size and pulmonary vascularity are normal. Lungs are clear. There are no effusions or pneumothoraces. IMPRESSION: Negative chest Dictated by: Dictated on workstation # [id number]
[2020-11-30] MEDS ORDERED: inSUlin (REGULAR) HUMAN 1 UNIT/0.01 ML (CHARGE PER UNIT) IV STA (17:09)
[2020-11-30 17:13] LABS: BASOPHILS # (AUTO) 0.1 10^3/uL (0.0-0.1); BASOPHILS % (AUTO) 0 % (0-10); EOSINOPHILS # (AUTO) 0.2 10^3/uL (0.0-0.3); EOSINOPHILS % (AUTO) 1 % (0-10); HEMATOCRIT 47 % (40-54); HEMOGLOBIN 16.3 g/dL (13.3-17.7); LYMPHOCYTES # (AUTO) 1.9 10^3/uL (1.0-4.0); LYMPHOCYTES % (AUTO) 14 % (12-44); MEAN CORPUSCULAR HEMOGLOBIN 31 pg (25-34); MEAN CORPUSCULAR HGB CONC 34 g/dL (32-36); MEAN CORPUSCULAR VOLUME 89 fL (80-99); MEAN PLATELET VOLUME 9.8 fL (9.0-12.2); MONOCYTES # (AUTO) 1.6 10^3/uL (0.0-1.0); MONOCYTES % (AUTO) 12 % (0-12); NEUTROPHILS # (AUTO) 9.6 10^3/uL (1.8-7.8); NEUTROPHILS % (AUTO) 72 % (42-75); PLATELET COUNT 205 10^3/uL (130-400); WHITE BLOOD COUNT 13.5 10^3/uL (4.3-11.0)
[2020-11-30 17:15] LABS: BILIRUBIN,URINE NEGATIVE (NEGATIVE); CLARITY,URINE CLEAR; COLOR,URINE YELLOW; GLUCOSE, URINE (UA) 3+ (NEGATIVE); KETONES,URINE 3+ (NEGATIVE); LEUKOCYTE ESTERASE ,URINE NEGATIVE (NEGATIVE); NITRITE,URINE NEGATIVE (NEGATIVE); PH,URINE 5.5 (5-9); PROTEIN,URINE TRACE (NEGATIVE)
[2020-11-30 17:24] LABS: BACTERIA,URINE NEGATIVE /HPF
[2020-11-30 17:24] LABS: ALBUMIN 3.5 GM/DL (3.2-4.5); CHLORIDE 97 MMOL/L (98-107); POTASSIUM 4.2 MMOL/L (3.6-5.0); SODIUM 131 MMOL/L (135-145)
[2020-11-30 17:26] LABS: CALCIUM 9.8 MG/DL (8.5-10.1)
[2020-11-30 17:27] LABS: PROTHROMBIN TIME PATIENT 13.2 SEC (12.2-14.7); TOTAL PROTEIN 7.2 GM/DL (6.4-8.2)
[2020-11-30 17:28] LABS: CARBON DIOXIDE 19 MMOL/L (21-32)
[2020-11-30 17:29] LABS: BILIRUBIN,TOTAL 0.2 MG/DL (0.1-1.0)
--- NOTE | 2020-11-30 17:29 | ED Integumentary General ---
General Chief Complaint: Skin/Wound Problems Stated Complaint: L FACIAL SWELLING / WANTS TO BE ADMITTED Nursing Triage Note: Pt to ER today for a repeat visit, states he was in ER last ngiht and wanted to admit him but he had no child and adolescent psychologist. Pt returns today and states he is "ready to be admitted now". Pt has three areas of concern that are draining a combination of blood/pus: Left jaw, back of left neck, and belly button. History of Present Illness Date Seen by Provider: Nov 30, 2020 Time Seen by Provider: 16:10 Initial Comments 40-year-old male returns for abscess to his left cheek and neck. He was seen yesterday for similar symptoms and encouraged to be admitted for IV antibiotics and hyperglycemia, however he did not have childcare and was unable to stay. Today his cousin is able to watch his kids (ages 12, 10 and 8). He has been taking the Bactrim DS and Augmentin as prescribed but continuing to have purulent drainage from both wounds. He last checked his blood sugar at approximately noon and it was 300. He is taking his insulin as prescribed but he has not been able to get the Metformin from the clinic pharmacy. He was seen here previously for a methicillin sensitive staph abscess to his neck, summer 2019. He has appt with dentist at [facility] later this month. Reviewed visit from yesterday and CT which showed facial cellulitis and Large periapical cyst in the right maxillary lateral incisor. Timing/Duration: yesterday Severity: mild Location: face Possible Cause: other (Wound abscess) Associated Symptoms: No fever, No rash Allergies and Home Medications Allergies Coded Allergies: No Known Drug Allergies (Unverified , 03/08/20) Home Medications Amoxicillin/Potassium Clav 1 Each Tablet, 1 EACH PO BID Prescribed by: KRISHAN PIEDRA on 11/29/201404 Hydrocodone/Acetaminophen 1 Each Tablet, 1 TAB PO Q4H PRN for PAIN-MODERATE (5- 7) Prescribed by: KRISHAN PIEDRA on 11/29/201405 Sulfamethoxazole/Trimethoprim 1 Each Tablet, 1 EACH PO BID Prescribed by: ARBEN BOUDREAUX on 03/08/202015 Sulfamethoxazole/Trimethoprim 1 Each Tablet, 1 EACH PO BID Prescribed by: KRISHAN PIEDRA on 11/29/201404 Patient Home Medication List Home Medication List Reviewed: Yes Review of Systems Review of Systems Constitutional: no symptoms reported, see HPI Skin: see HPI, other (Skin abscess left cheek and neck, posterior) All Other Systems Reviewed Negative Unless Noted: Yes Past Lysqput-Lmcajb-Gwmvhs Hx Past Med/Social Hx: Reviewed Nursing Past Med/Soc Hx Patient Social History Alcohol Use: Denies Use Drug of Choice: marijuana Smoking Status: Current Everyday Smoker Type Used: Cigarettes 2nd Hand Smoke Exposure: Yes Recent Infectious Disease Expo: No Recent Hopitalizations: No Seasonal Allergies Seasonal Allergies: No Past Medical History Surgeries: Yes Ear Surgery, Tonsillectomy Respiratory: Yes Pulmonary Embolism Currently Using CPAP: No Currently Using BIPAP: No Cardiac: No Neurological: No Genitourinary: No Gastrointestinal: No Musculoskeletal: No Endocrine: Yes Diabetes, Non-Insulin dep HEENT: No Cancer: No Psychosocial: No Integumentary: No Blood Disorders: No Physical Exam Vital Signs Vital Signs - First Documented 11/30/20 16:10 Temp 36.8 Pulse 114 Resp 20 B/P (MAP) 109/79 (89) Capillary Refill : Less Than 3 Seconds General Appearance: WD/WN, no apparent distress HEENT: PERRL/EOMI, normal ENT inspection, TMs normal, pharynx normal, other (Open wound with purulent drainage from left cheek) Neck: full range of motion, lymphadenopathy (L), other (Mild erythema and purulent drainage to posterior neck wound) Cardiovascular: normal peripheral pulses, regular rate, rhythm, tachycardia (105-115) Respiratory: chest non-tender, lungs clear, normal breath sounds Gastrointestinal: normal bowel sounds, non tender, soft Extremities: normal range of motion, non-tender, normal inspection, normal capillary refill Neurologic/Psychiatric: no motor/sensory deficits, alert, normal mood/affect, oriented x 3 Skin: normal color, warm/dry Skin Problem Location: face Skin Problem Character: abscess Progress/Results/Core Measures Results/Orders Lab Results Laboratory Tests Test 11/30/20 16:50 11/30/20 16:58 11/30/20 17:00 11/30/20 17:25 Range/Units Urine Color YELLOW Urine Clarity CLEAR Urine pH 5.5 5-9 Urine Specific [place] 1.015 L 1.016-1.022 Urine Protein TRACE H NEGATIVE Urine Glucose (UA) 3+ H NEGATIVE Urine Ketones 3+ H NEGATIVE Urine Nitrite NEGATIVE NEGATIVE Urine Bilirubin NEGATIVE NEGATIVE Urine Urobilinogen 0.2 < = 1.0 MG/DL Urine Leukocyte Esterase NEGATIVE NEGATIVE Urine RBC (Auto) TRACE-I NEGATIVE Urine RBC NONE /HPF Urine WBC NONE /HPF Urine Squamous Epithelial Cells NONE /HPF Urine Renal Epithelial Cells NONE /HPF Urine Crystals NONE /LPF Urine Bacteria NEGATIVE /HPF Urine Casts NONE /LPF Urine Mucus NEGATIVE /LPF Urine Culture Indicated NO Urine Opiates Screen POSITIVE H NEGATIVE Urine Oxycodone Screen NEGATIVE NEGATIVE Urine Methadone Screen NEGATIVE NEGATIVE Urine Propoxyphene Screen NEGATIVE NEGATIVE Urine Barbiturates Screen NEGATIVE NEGATIVE Ur Tricyclic Antidepressants Screen NEGATIVE NEGATIVE Urine Phencyclidine Screen NEGATIVE NEGATIVE Urine Amphetamines Screen NEGATIVE NEGATIVE Urine Methamphetamines Screen NEGATIVE NEGATIVE Urine Benzodiazepines Screen NEGATIVE NEGATIVE Urine Cocaine Screen NEGATIVE NEGATIVE Urine Cannabinoids Screen NEGATIVE NEGATIVE Glucometer 356 H 70-110 MG/DL White Blood Count 13.5 H 4.3-11.0 10^3/uL Red Blood Count 5.30 4.30-5.52 10^6/uL Hemoglobin 16.3 13.3-17.7 g/dL Hematocrit 47 40-54 % Mean Corpuscular Volume 89 80-99 fL Mean Corpuscular Hemoglobin 31 25-34 pg Mean Corpuscular Hemoglobin Concent 34 32-36 g/dL Red Cell Distribution Width 12.6 10.0-14.5 % Platelet Count 205 130-400 10^3/uL Mean Platelet Volume 9.8 9.0-12.2 fL Immature Granulocyte % (Auto) 2 % Neutrophils (%) (Auto) 72 42-75 % Lymphocytes (%) (Auto) 14 12-44 % Monocytes (%) (Auto) 12 0-12 % Eosinophils (%) (Auto) 1 0-10 % Basophils (%) (Auto) 0 0-10 % Neutrophils # (Auto) 9.6 H 1.8-7.8 10^3/uL Lymphocytes # (Auto) 1.9 1.0-4.0 10^3/uL Monocytes # (Auto) 1.6 H 0.0-1.0 10^3/uL Eosinophils # (Auto) 0.2 0.0-0.3 10^3/uL Basophils # (Auto) 0.1 0.0-0.1 10^3/uL Immature Granulocyte # (Auto) 0.2 H 0.0-0.1 10^3/uL Prothrombin Time 13.2 12.2-14.7 SEC INR Comment 1.0 0.8-1.4 Activated Partial Thromboplast Time 29 24-35 SEC Sodium Level 131 L 135-145 MMOL/L Potassium Level 4.2 3.6-5.0 MMOL/L Chloride Level 97 L 98-107 MMOL/L Carbon Dioxide Level 19 L 21-32 MMOL/L Anion Gap 15 H 5-14 MMOL/L Blood Urea Nitrogen 13 7-18 MG/DL Creatinine 0.85 0.60-1.30 MG/DL Estimat Glomerular Filtration Rate > 60 BUN/Creatinine Ratio 15 Glucose Level 402 *H 70-105 MG/DL Calcium Level 9.8 8.5-10.1 MG/DL Corrected Calcium 10.2 H 8.5-10.1 MG/DL Total Bilirubin 0.2 0.1-1.0 MG/DL Aspartate Amino Transf (AST/SGOT) 9 5-34 U/L Alanine Aminotransferase (ALT/SGPT) 10 0-55 U/L Alkaline Phosphatase 104 40-136 U/L C-Reactive Protein High Sensitivity 27.60 H 0.00-0.50 MG/DL Total Protein 7.2 6.4-8.2 GM/DL Albumin 3.5 3.2-4.5 GM/DL Lactic Acid Level 1.74 0.50-2.00 MMOL/L Test 11/30/20 17:59 Range/Units Glucometer 244 H 70-110 MG/DL My Orders Orders - LUIZA LAMAS Cbc With Automated Diff (11/30/20 16:27) Comprehensive Metabolic Panel (11/30/20 16:27) Blood Culture (11/30/20 16:27) Urinalysis (11/30/20 16:27) Urine Culture (11/30/20 16:27) Protime With Inr (11/30/20 16:27) Partial Thromboplastin Time (11/30/20 16:27) Chest 1 View, Ap/Pa Only (11/30/20 16:27) Ed Iv/Invasive Line Start (11/30/20 16:27) Vital Signs Adult Sepsis Patie Q15M (11/30/20 16:27) Wound Culture (11/30/20 16:27) Ns Iv 1000 Ml (Sodium Chloride 0.9%) (11/30/20 16:30) Lactic Acid Analyzer (11/30/20 16:27) Accucheck Stat ONCE (11/30/20 16:37) Hs C Reactive Protein (11/30/20 16:54) Insulin (Regular) Human (Novolin R (Per (11/30/20 17:09) Ed Iv/Invasive Line Start (11/30/20 17:28) Ns Iv 1000 Ml (Sodium Chloride 0.9%) (11/30/20 17:30) Accucheck Stat ONCE (11/30/20 17:47) Vancomycin Injection (Vancomycin Injecti (11/30/20 18:15) Drug Screen Stat (Urine) (11/30/20 18:21) Vancomycin Injection (Vancomycin Injecti (11/30/20 18:30) Vital Signs/I&O 11/30/20 16:10 Temp 36.8 Pulse 114 Resp 20 B/P (MAP) 109/79 (89) Blood Pressure Mean: 89 FSBG Bedside Testing Finger Stick Blood Glucose: 356 Blood Glucose Action Taken: Dr notified Progress Progress Note : Time: 16:10 Progress Note Patient seen and evaluated considering the tachycardia and slight hypotension we will begin the sepsis protocol with IV hydration and lab work-up. He is afebrile. Wound culture was obtained from the neck yesterday which is presumptive staph methicillin sensitive, a new culture was obtained from the left cheek. The patient is complaining of tenderness to his umbilicus, superficially. There is a small superficial abrasion no active bleeding or drainage. There is no induration, fluctuance, erythema or warmth at the umbilicus. Glucose 400, will give 5 units of regular insulin in his liter of saline. 1700 heart rate has come down to 90-100 and blood pressure is improved to 118/74. Will give a second liter of normal saline IV. Vancomycin 1 g IV 1730 glucose 240. Labs reviewed with patient, he is agreeable to admission. [address] Rydre, agreed with plan to admit patient and give both vancomycin and Zosyn IV for antibiotic coverage. 183 patient requesting pain medication will give tramadol 50 mg orally. 1914 patient reports pain has improved, pulse is 85, blood pressure is 118/80. No complaints at this time awaiting transfer to floor. Diagnostic Imaging Diagonstic Imaging: Xray Plain Films/CT/US/NM/MRI: chest Comments NAME: FRANCESCO ROBERSON [facility] REC#: [id number] PT STATUS: REG ER : 1980 PHYSICIAN: LUIZA LAMAS ADMIT DATE: 11/30/20/ER Signed Date of Exam:11/30/20 CHEST 1 VIEW, AP/PA ONLY Indication: Sepsis Portable chest 4:41 PM Heart size and pulmonary vascularity are normal. Lungs are clear. There are no effusions or pneumothoraces. IMPRESSION: Negative chest Dictated by: Dictated on workstation # [id number] Dict: 11/30/20 1649 Trans: 11/30/20 1650 [id number] Interpreted by: FELIX BEJARANO MD Electronically signed by: FELIX BEJARANO MD 11/30/20 1650 Reviewed: Reviewed by Me Departure Impression Primary Impression: Abscess of skin of neck Additional Impressions: Cutaneous abscess of face Hyperglycemia due to type 2 diabetes mellitus Qualified Codes: E11.65 - Type 2 diabetes mellitus with hyperglycemia; Z79.4 - prison (current) use of insulin Facial cellulitis Disposition: ADMITTED INPATIENT Condition: Stable Admissions Decision to Admit Reason: Admit from ER (General) Decision to Admit/Date: Nov 30, 2020 Time/Decision to Admit Time: 18:00 Departure-Patient Inst. Referrals: [facility],LOCAL PHYSICIAN (PCP) Primary Care Physician LUIZA LAMAS Nov 30, 2020 17:29
[2020-11-30 17:30] LABS: ALKALINE PHOSPHATASE 104 U/L (40-136)
[2020-11-30 17:31] LABS: CREATININE SERUM 0.85 MG/DL (0.60-1.30); GFR ESTIMATED > 60
[2020-11-30 17:32] LABS: BUN/CREATININE RATIO 15
[2020-11-30 17:33] LABS: ALANINE AMINOTRANSFERASE 10 U/L (0-55)
[2020-11-30 17:41] LABS: GLUCOSE 402 MG/DL (70-105)
[2020-11-30] MEDS ORDERED: VANCOMYCIN INJECTION 1,000 MG in NS (IVPB) 250 ML IV ONE (18:15)
[2020-11-30] MEDS ORDERED: VANCOMYCIN 2000 MG/NS 500 ML IVPB IV NR ×2 (18:30)
[2020-11-30 18:38] LABS: AMPHETAMINE SCREEN, URINE NEGATIVE (NEGATIVE); BARBITURATE SCREEN URINE NEGATIVE (NEGATIVE); BENZODIAZEPINES SCREEN URINE NEGATIVE (NEGATIVE); CANNABINOID SCREEN, URINE NEGATIVE (NEGATIVE); COCAINE SCREEN URINE NEGATIVE (NEGATIVE); METHADONE STAT NEGATIVE (NEGATIVE); METHAMPHETAMINE SCREEN URINE S NEGATIVE (NEGATIVE); OPIATE SCREEN URINE POSITIVE (NEGATIVE); OXYCODONE STAT NEGATIVE (NEGATIVE); PROPOXYPHENE STAT NEGATIVE (NEGATIVE); TRICYCLIC ANTIDEPRESSANTS SCRE NEGATIVE (NEGATIVE)
[2020-11-30] MEDS ORDERED: ACETAMINOPHEN 325 MG TABLET PO PRN (20:15)
[2020-11-30] MEDS ORDERED: PIPERACILLIN/TAZO 4.5 GM/NS 100 ML IV NR ×2 (20:15)
[2020-11-30] MEDS ORDERED: CATHETER FLUSH 10 ML SYR IV PRN (20:15)
[2020-11-30] MEDS ORDERED: ONDANSETRON 4 MG/2 ML (SDV) Z0FRAN IV PRN (20:15)
[2020-11-30 20:24] VITALS: BP 131/71
[2020-11-30] MEDS: NS IV 1000 ML 1,000 ML IV SCH (20:33)
[2020-11-30] MEDS: MUPIROCIN 2% OINT 22 GM (BACTROBAN) TUBE TOP SCH (21:15)
[2020-11-30] MEDS: inSUlin ASPART (NovoLOG) 1 UNIT/0.01 ML (CHARGE PER UNIT) SC SCH (22:45)
[2020-12-01] VITALS (7 sets, daily range): BP systolic 103–125; BP diastolic 59–78
[2020-12-01] MEDS: VANCOMYCIN 2000 MG/NS 500 ML IVPB IV SCH ×4 (02:01→10:32)
[2020-12-01] MEDS: PIPERACILLIN/TAZO 4.5 GM/NS 100 ML IV SCH ×6 (02:07→18:02)
[2020-12-01 05:59] LABS: BASOPHILS # (AUTO) 0.1 10^3/uL (0.0-0.1); BASOPHILS % (AUTO) 1 % (0-10); EOSINOPHILS # (AUTO) 0.3 10^3/uL (0.0-0.3); EOSINOPHILS % (AUTO) 2 % (0-10); HEMATOCRIT 44 % (40-54); HEMOGLOBIN 14.6 g/dL (13.3-17.7); LYMPHOCYTES # (AUTO) 2.6 10^3/uL (1.0-4.0); LYMPHOCYTES % (AUTO) 22 % (12-44); MEAN CORPUSCULAR HEMOGLOBIN 31 pg (25-34); MEAN CORPUSCULAR HGB CONC 33 g/dL (32-36); MEAN CORPUSCULAR VOLUME 93 fL (80-99); MEAN PLATELET VOLUME 10.3 fL (9.0-12.2); MONOCYTES # (AUTO) 1.5 10^3/uL (0.0-1.0); MONOCYTES % (AUTO) 13 % (0-12); NEUTROPHILS # (AUTO) 6.9 10^3/uL (1.8-7.8); NEUTROPHILS % (AUTO) 60 % (42-75); PLATELET COUNT 189 10^3/uL (130-400); WHITE BLOOD COUNT 11.6 10^3/uL (4.3-11.0)
[2020-12-01 06:11] LABS: ALANINE AMINOTRANSFERASE 10 U/L (0-55); ALBUMIN 2.9 GM/DL (3.2-4.5); ALKALINE PHOSPHATASE 79 U/L (40-136); BILIRUBIN,TOTAL 0.2 MG/DL (0.1-1.0); BUN/CREATININE RATIO 14; CALCIUM 8.6 MG/DL (8.5-10.1); CARBON DIOXIDE 20 MMOL/L (21-32); CHLORIDE 103 MMOL/L (98-107); CREATININE SERUM 0.73 MG/DL (0.60-1.30); GFR ESTIMATED > 60; GLUCOSE 196 MG/DL (70-105); POTASSIUM 4.2 MMOL/L (3.6-5.0); SODIUM 138 MMOL/L (135-145); TOTAL PROTEIN 5.8 GM/DL (6.4-8.2)
[2020-12-01] MEDS: inSUlin ASPART (NovoLOG) 1 UNIT/0.01 ML (CHARGE PER UNIT) SC SCH ×4 (06:28→20:59)
[2020-12-01] MEDS: MUPIROCIN 2% OINT 22 GM (BACTROBAN) TUBE TOP SCH ×3 (06:28→20:59)
[2020-12-01] MEDS: NS IV 1000 ML 1,000 ML IV SCH ×2 (06:29→12:17)
[2020-12-01] MEDS: metFORMIN 500 MG (GLUCOPHAGE) TAB PO SCH ×2 (07:44→17:15)
[2020-12-01] MEDS: HYDROcodone/APAP 5 MG/325 MG (LORTAB) TAB PO PRN ×2 (12:22→20:58)
[2020-12-01] MEDS ORDERED: ATOR20TA66 PO (13:48)
[2020-12-01] MEDS ORDERED: INSU100V39 SC (13:48)
[2020-12-01] MEDS ORDERED: AMOX1TAB12 PO (13:48)
[2020-12-01] MEDS ORDERED: ACHD5005 PO (13:48)
[2020-12-01] MEDS ORDERED: APIX2.5T PO (13:48)
[2020-12-01] MEDS ORDERED: SULF1TAB35 PO (13:48)
--- NOTE | 2020-12-01 17:52 | History & Physical ---
HPI History of Present Illness: 40 yo M that presented with left jaw and neck swelling that started 2 days ago. States that he went to ER and was given a dose of IV and started on oral antibiotics and the pain and swelling continued to get bigger. Denies having infection in this location previously. States that he has had most of his teeth removed on that side. Does not remember having any injury or trauma to that area while shaving. Thinks that he may have been bit by a bug or its an ingrown hair. Denies any previous h/o MRSA. States that he is on medications for DM but does not remember his last A1c. Does not check blood sugars at home. States that the swelling and pain have improved since yesterday but the pain medication wears off before he can have an additional dose. Source: patient, spouse Exam Limitations: no limitations Date seen by provider: Dec 01, 2020 Time Seen by Provider: 10:35 Attending Physician Albert Ryder MD PCP No,Local Physician Consult Date of Admission Nov 30, 2020 at 18:30 Home Medications Home Medications Reviewed patient Home Medication Reconciliation performed by pharmacy medication reconciliations tractor technician and/or nursing. Patients Allergies have been reviewed. Allergies Coded Allergies: No Known Drug Allergies (Unverified , 03/08/20) [facility] Hx Patient Social History Drug of Choice: marijuana Smoking Status: Current Everyday Smoker 2nd Hand Smoke Exposure: Yes Recent Hopitalizations: No Alcohol Use?: No Have you traveled recently?: No Past Medical History IDDM Poor dentition Review of Systems ([facility]) Constitutional: No chills, No fever EENTM: No mouth pain, No mouth swelling, No throat pain, No throat swelling Respiratory: no symptoms reported; No cough, No dyspnea on exertion, No short of breath Cardiovascular: no symptoms reported; No chest pain, No edema, No palpitations Gastrointestinal: no symptoms reported; No abdominal pain, No constipation, No diarrhea; loss of appetite (decreased due to pain); No nausea, No vomiting Genitourinary: no symptoms reported; No dysuria, No frequency, No hematuria Musculoskeletal: neck pain Skin: other (redness and swelling down left neck) Psychiatric/Neurological: No Symptoms Reported; Denies Headache, Denies Numbness Reviewed Test Results Reviewed Test Results Lab Laboratory Tests Test 11/30/20 17:59 11/30/20 22:36 12/01/20 05:18 12/01/20 05:33 Range/Units Glucometer 244 H 264 H 201 H 70-110 MG/DL White Blood Count 11.6 H 4.3-11.0 10^3/uL Red Blood Count 4.77 4.30-5.52 10^6/uL Hemoglobin 14.6 13.3-17.7 g/dL Hematocrit 44 40-54 % Mean Corpuscular Volume 93 80-99 fL Mean Corpuscular Hemoglobin 31 25-34 pg Mean Corpuscular Hemoglobin Concent 33 32-36 g/dL Red Cell Distribution Width 12.7 10.0-14.5 % Platelet Count 189 130-400 10^3/uL Mean Platelet Volume 10.3 9.0-12.2 fL Immature Granulocyte % (Auto) 2 % Neutrophils (%) (Auto) 60 42-75 % Lymphocytes (%) (Auto) 22 12-44 % Monocytes (%) (Auto) 13 H 0-12 % Eosinophils (%) (Auto) 2 0-10 % Basophils (%) (Auto) 1 0-10 % Neutrophils # (Auto) 6.9 1.8-7.8 10^3/uL Lymphocytes # (Auto) 2.6 1.0-4.0 10^3/uL Monocytes # (Auto) 1.5 H 0.0-1.0 10^3/uL Eosinophils # (Auto) 0.3 0.0-0.3 10^3/uL Basophils # (Auto) 0.1 0.0-0.1 10^3/uL Immature Granulocyte # (Auto) 0.2 H 0.0-0.1 10^3/uL Sodium Level 138 135-145 MMOL/L Potassium Level 4.2 3.6-5.0 MMOL/L Chloride Level 103 98-107 MMOL/L Carbon Dioxide Level 20 L 21-32 MMOL/L Anion Gap 15 H 5-14 MMOL/L Blood Urea Nitrogen 10 7-18 MG/DL Creatinine 0.73 0.60-1.30 MG/DL Estimat Glomerular Filtration Rate > 60 BUN/Creatinine Ratio 14 Glucose Level 196 H 70-105 MG/DL Calcium Level 8.6 8.5-10.1 MG/DL Corrected Calcium 9.5 8.5-10.1 MG/DL Total Bilirubin 0.2 0.1-1.0 MG/DL Aspartate Amino Transf (AST/SGOT) 9 5-34 U/L Alanine Aminotransferase (ALT/SGPT) 10 0-55 U/L Alkaline Phosphatase 79 40-136 U/L Total Protein 5.8 L 6.4-8.2 GM/DL Albumin 2.9 L 3.2-4.5 GM/DL Test 12/01/20 10:43 12/01/20 15:49 Range/Units Glucometer 371 H 268 H 70-110 MG/DL Physical Exam-([facility]) Physical Exam Vital Signs VS - Last 72 Hours, by Label 11/30/20 11/30/20 11/30/20 11/30/20 16:10 19:41 20:15 20:24 Temp 36.8 37.3 Pulse 114 95 104 Resp 20 16 18 B/P (MAP) 109/79 (89) 112/72 131/71 (91) Pulse Ox 97 98 O2 Delivery Room Air Room Air Room Air 12/01/20 12/01/20 12/01/20 12/01/20 00:17 04:00 07:45 08:00 Temp 36.7 36.8 36.4 Pulse 91 83 85 Resp 20 20 18 B/P (MAP) 106/63 (77) 103/59 (74) 113/71 (85) Pulse Ox 96 99 97 O2 Delivery Room Air Room Air Room Air Room Air 12/01/20 12/01/20 11:40 16:20 Temp 36.2 35.7 Pulse 88 75 Resp 18 24 B/P (MAP) 125/78 (94) 110/71 (84) Pulse Ox 97 97 O2 Delivery Room Air Room Air Capillary Refill : Less Than 3 Seconds General Appearance: WD/WN, no apparent distress HEENT: PERRL/EOMI Neck: full range of motion, supple, other (swelling present in left neck, normal ROM, tender around abscess drainage area with purulent drainage, + erythema) Respiratory: chest non-tender, lungs clear, normal breath sounds, no respiratory distress, no accessory muscle use Cardiovascular: normal peripheral pulses, regular rate, rhythm, no edema, no murmur Gastrointestinal: normal bowel sounds, non tender, soft, no organomegaly Back: no CVA tenderness, no vertebral tenderness Extremities: normal range of motion, non-tender, normal inspection, no pedal edema, no calf tenderness, normal capillary refill Neurologic/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, no motor/sensory deficits, alert, normal mood/affect, oriented x 3 Assessment/Plan Assessment/Plan Admission Status: Observation (1) Cutaneous abscess of face Status: Acute Assessment & Plan: - Started on Vanc/Zosyn D2, culture MRSA neg, Vanc d/c this afternoon, will continue Zosyn, warm compresses (2) Facial cellulitis Status: Acute (3) Insulin dependent diabetes mellitus Status: Chronic Assessment & Plan: - A1c pending, SSI added today, blood sugars elevated in 300s (4) Hyperglycemia due to type 2 diabetes mellitus Status: Acute Qualifiers: Qualified Codes: E11.65 - Type 2 diabetes mellitus with hyperglycemia; Z79.4 - terminal press operator (current) use of insulin ALBERT RYDER MD Dec 01, 2020 17:52
[2020-12-01] MEDS ORDERED: TROUGH ORDER-PHARMACY XX NR (18:00)
[2020-12-02] MEDS: NS IV 1000 ML 1,000 ML IV SCH (01:24)
[2020-12-02] MEDS: PIPERACILLIN/TAZO 4.5 GM/NS 100 ML IV SCH ×4 (01:47→09:50)
[2020-12-02 04:04] VITALS: BP 109/69
[2020-12-02] MEDS: MUPIROCIN 2% OINT 22 GM (BACTROBAN) TUBE TOP SCH (05:34)
[2020-12-02 05:38] LABS: BASOPHILS # (AUTO) 0.1 10^3/uL (0.0-0.1); BASOPHILS % (AUTO) 1 % (0-10); EOSINOPHILS # (AUTO) 0.2 10^3/uL (0.0-0.3); EOSINOPHILS % (AUTO) 4 % (0-10); HEMATOCRIT 45 % (40-54); HEMOGLOBIN 14.9 g/dL (13.3-17.7); LYMPHOCYTES % (AUTO) 29 % (12-44); MEAN CORPUSCULAR HEMOGLOBIN 31 pg (25-34); MEAN CORPUSCULAR HGB CONC 33 g/dL (32-36); MEAN CORPUSCULAR VOLUME 92 fL (80-99); MEAN PLATELET VOLUME 10.2 fL (9.0-12.2); MONOCYTES # (AUTO) 0.9 10^3/uL (0.0-1.0); MONOCYTES % (AUTO) 13 % (0-12); NEUTROPHILS # (AUTO) 3.5 10^3/uL (1.8-7.8); NEUTROPHILS % (AUTO) 51 % (42-75); PLATELET COUNT 213 10^3/uL (130-400); WHITE BLOOD COUNT 6.9 10^3/uL (4.3-11.0)
[2020-12-02 05:54] LABS: ALBUMIN 2.7 GM/DL (3.2-4.5)
[2020-12-02 05:55] LABS: CHLORIDE 101 MMOL/L (98-107); SODIUM 137 MMOL/L (135-145)
[2020-12-02 05:56] LABS: CALCIUM 8.7 MG/DL (8.5-10.1)
[2020-12-02 05:57] LABS: GLUCOSE 297 MG/DL (70-105); TOTAL PROTEIN 5.9 GM/DL (6.4-8.2)
[2020-12-02 05:58] LABS: CARBON DIOXIDE 21 MMOL/L (21-32)
[2020-12-02 05:59] LABS: BILIRUBIN,TOTAL 0.2 MG/DL (0.1-1.0)
[2020-12-02 06:00] LABS: ALKALINE PHOSPHATASE 82 U/L (40-136)
[2020-12-02 06:01] LABS: CREATININE SERUM 0.68 MG/DL (0.60-1.30); GFR ESTIMATED > 60
[2020-12-02 06:02] LABS: BUN/CREATININE RATIO 12
[2020-12-02 06:04] LABS: ALANINE AMINOTRANSFERASE 8 U/L (0-55)
[2020-12-02] MEDS: inSUlin ASPART (NovoLOG) 1 UNIT/0.01 ML (CHARGE PER UNIT) SC SCH ×2 (06:09→11:10)
[2020-12-02 08:00] VITALS: BP 114/76
[2020-12-02] MEDS: metFORMIN 500 MG (GLUCOPHAGE) TAB PO SCH (08:54)
[2020-12-02] MEDS ORDERED: APIXABAN 2.5 MG (ELIQUIS) TABLET PO SCH (09:00)
[2020-12-02] MEDS: HYDROcodone/APAP 5 MG/325 MG (LORTAB) TAB PO PRN (09:58)
--- NOTE | 2020-12-02 11:01 | Discharge Summary ---
Diagnosis/Chief Complaint Date of Admission Nov 30, 2020 at 18:30 Date of Discharge Discharge Diagnosis Problems/Diagnosis: (1) Cutaneous abscess of face Assessment & Plan: - Started on Vanc/Zosyn D2, culture MRSA neg, Vanc d/c this afternoon, will continue Zosyn, warm compresses Status: Acute (2) Facial cellulitis Status: Acute (3) Insulin dependent diabetes mellitus Assessment & Plan: - A1c pending, SSI added today, blood sugars elevated in 300s Status: Chronic (4) Hyperglycemia due to type 2 diabetes mellitus Qualifiers: Qualified Codes: E11.65 - Type 2 diabetes mellitus with hyperglycemia; Z79.4 - [facility] (current) use of insulin Status: Acute Chief Complaint/HPI Chief Complaint/HPI 40 yo M that presented with left jaw and neck swelling that started 2 days ago. States that he went to ER and was given a dose of IV and started on oral antibiotics and the pain and swelling continued to get bigger. Denies having infection in this location previously. States that he has had most of his teeth removed on that side. Does not remember having any injury or trauma to that area while shaving. Thinks that he may have been bit by a bug or its an ingrown hair. Denies any previous h/o MRSA. States that he is on medications for DM but does not remember his last A1c. Does not check blood sugars at home. States that the swelling and pain have improved since yesterday but the pain medication wears off before he can have an additional dose. Discharge Summary-Simple/Stand Consultations Discharge Physical Examination Allergies: Coded Allergies: No Known Drug Allergies (Unverified , 03/08/20) Vitals & I&Os Vital Sign - Last 12Hours Date Time Temp Pulse Resp B/P (MAP) Pulse Ox O2 Delivery O2 Flow Rate FiO2 12/02/20 08:00 36.5 77 18 114/76 (89) 99 Room Air Intake and Output 12/01/20 23:59 Intake Total 3096 ml Balance 3096 ml Hospital Course See final discharge diagnosis. Discharge Instructions to patient/family Please see electronic discharge instructions given to patient. Discharge Medications Reviewed and agree with Discharge Medication list on patient's Discharge Instruction sheet ALBERT HOWELL MD Dec 02, 2020 11:01
[2020-12-02] MEDS ORDERED: AMOX-358 PO (11:04)
[2020-12-02] MEDS ORDERED: METF-397 PO (11:04)
--- NOTE | 2020-12-02 11:06 | Discharge Summary ---
Discharge [facility] Reconcile Patient Problems Problems Reviewed?: Yes Discharge Medications New, Converted or Re-Newed RX: Transmitted to Pharmacy New Medications: Amoxicillin/Potassium Clav (Augmentin 875-125 Tablet) 1 Each Tablet 1 EACH PO BID, #14 TAB Metformin HCl (Metformin HCl) 500 Mg Tablet 500 MG PO BID WITH MEALS, #60 TAB Continued Medications: Apixaban (Eliquis) 2.5 Mg Tablet 2.5 MG PO DAILY, TAB Atorvastatin Calcium (Atorvastatin Calcium) 20 Mg Tablet 20 MG PO DAILY, TAB Hydrocodone/Acetaminophen (Hydrocodone-Acetamin 5-325 mg) 1 Each Tablet 1 TAB PO Q4H PRN for PAIN-MODERATE (5-7), TAB Insulin Lispro (Insulin Lispro) 100 Unit/1 Ml Vial UNITS SC TIDPC, UNITS USES PER SLIDING SCALE Patient Instructions Goal/Follow Up Appt: F/u with Milagros Spears next week for f.u on Abscess Activity & Diet Discharge Diet: ADA Diet Activity as Tolerated: Yes ALBERT HOWELL MD Dec 02, 2020 11:06
== END 2020-12-02 12:45 | disposition home or self-care (01) ==
LOC: EDUNIT# 16:02 → ER 16:04 → 4TH 18:30
PROVIDERS: ADMIT Family Medicine; ATTEND Family Medicine
DX: L02.01 Cutaneous abscess of face (principal); L03.211 Cellulitis of face; L02.11 Cutaneous abscess of neck; E11.65 Type 2 diabetes mellitus with hyperglycemia; I26.99 Other pulmonary embolism without acute cor pulmonale; F17.210 Nicotine dependence, cigarettes, uncomplicated; Z79.4 Long term (current) use of insulin; Z90.89 Acquired absence of other organs; Z79.891 Long term (current) use of opiate analgesic; Z79.899 Other long term (current) drug therapy
CPT/HCPCS: 36415; 71045; 80053; 80306; 81000; 82962; 83036; 83605; 85025; 85610; 85730; 86141; 87040; 87070; 87077; 87088; 87186; 87205; 96361; 96365; 96375